=== PATIENT | female | born 1945 | race Caucasian/White ===

== ENCOUNTER 2016-04-16 15:18 | Inpatient (IN) ==
[2016-04-16] MEDS ORDERED: Ipratropium/Albuterol Neb 3 ML IH ONE (15:21)
[2016-04-16] MEDS ORDERED: methylPREDNISolone 125 MG/2 ML VIAL IVP ONE (15:50)
[2016-04-16] MEDS ORDERED: 0.9 % Sodium Chloride 1,000 ML IVC ONE (15:50)
--- NOTE | 2016-04-16 15:55 | Emergency Department Note ---
Disposition Clinical Impression: Community acquired pneumonia, Acute exacerbation of chronic obstructive pulmonary disease (COPD) Disposition: Admitted As Inpatient Condition: Critical General Adult HPI - General Chief complaint: ED Shortness of Breath/Dyspnea Stated complaint: SOB/ERNESTO Time Seen by Provider: 04/16/16 15:20 Source: EMS - History of Present Illness Pain Scale: 5 - Related Data Home Medications Medication Instructions Recorded Confirmed Albuterol Neb [Proventil Neb] 2.5 mg IH Q6H PRN 10/31/14 04/16/16 Aspirin 81 mg PO DAILY 10/31/14 04/16/16 Atorvastatin [Lipitor] 10 mg PO HS 10/31/14 04/16/16 Calcium Carbonate/Vitamin D3 1 tab PO DAILY 10/31/14 04/16/16 [Calcium 600 + Vit D Tablet] Levothyroxine [Synthroid] 88 mcg PO DAILY 10/31/14 04/16/16 Albuterol Sulfate [Proair Hfa] 2 puff IH Q4-6H PRN 04/16/16 04/16/16 Fluticasone/Salmeterol [Advair 1 puff IH BID 04/16/16 04/16/16 250-50 Diskus] Guaifenesin [Mucinex] 600 mg PO BID PRN 04/16/16 04/16/16 Raloxifene [Evista] 60 mg PO DAILY 04/16/16 04/16/16 Allergies Allergy/AdvReac Type Severity Reaction Status Date / Time Sulfa (Sulfonamide Allergy Rash Verified 10/31/14 16:15 Antibiotics) Past Medical History - Past Medical History Medical history: Reports: COPD, hyperlipidemia, thyroid disease Psychiatric history: Reports: no psych 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 Degroot. Patient presents by EMS from an urgent care where she presented with shortness of breath. Patient has a history of COPD but also has a history of anxiety as a cause of shortness of breath. She thinks that today both things are going on. On examination she seems in respiratory distress with tachypnea and accessory muscle use. She has decreased air movement in both lung padron but there is some wheezing with fair movement that is present. See no clinical indication of congestive heart failure. We started BiPAP with DuoNeb right away. Chest x-ray and ABG are pending as are the other shortness of breath labs. We will get her Solu-Medrol as well. Disposition will be based on diagnostic results and reevaluation. Time: 15:55 Reevaluation #2: Patient did better with breathing treatments. We will remove the BiPAP and she was breathing comfortably in the bed although her heart rate remained about 120. Chest x-ray showed what looks like it might be a hilar pneumonia. We got the patient up and ambulated her and after only a very short distance she decompensated severely we had to get a wheelchair to take her back to the bed and get her on oxygen and aerosol treatments again. She is to be admitted to the hospital. We will start her on antibiotics. Time: 17:26 Vital Signs Temperature 98.2 F 04/16/16 15:20 Pulse Rate 69 04/16/16 15:20 Respiratory Rate 28 04/16/16 15:20 Blood Pressure 140/87 04/16/16 15:20 O2 Sat by Pulse Oximetry 97 04/16/16 15:20 Temperature 97.7 F 04/18/16 11:41 Pulse Rate 96 04/18/16 11:41 Respiratory Rate 16 04/18/16 11:41 Blood Pressure 138/89 04/18/16 11:41 O2 Sat by Pulse Oximetry 96 04/18/16 11:41 Oxygen Delivery Oxygen Delivery Nasal Cannula Medical Decision Making - Lab Data Result diagrams: 04/18/16 04:25 04/18/16 04:25 Lab Results 04/16/16 04/16/16 04/16/16 Range/Units 15:46 16:09 16:09 WBC 10.0 (4.3-11.1) K/mcL RBC 4.66 (3.82-4.97) M/mcL Hgb 14.7 (11.5-15.4) g/dL Hct 44.6 (35.3-44.9) % MCV 95.7 (83.0-100.0) fL MCH 31.5 (28.0-33.3) pg MCHC 33.0 (31.6-35.5) g/dL RDW 13.4 (11.5-14.5) % Plt Count 224 (140-400) K/mcL MPV 10.1 (9.4-12.4) fL Immature Gran % 0.6 (0-4) % Seg Neutrophils % 83.5 % Lymphocytes % 9.5 % Monocytes % 4.8 % Eosinophils % 1.4 % Basophils % 0.2 % Neutrophils # 8.4 (1.6-8.9) K/mcL Lymphocytes # 1.0 (0.6-4.6) K/mcL Monocytes # 0.5 (0.0-1.3) K/mcL Eosinophils # 0.1 (0.0-0.6) K/mcL Basophils # 0.0 (0.0-0.2) K/mcL D-Dimer 308 (0-500) ng/mLFEU ABG pH 7.42 (7.32-7.45) pH Units ABG pCO2 41 (35-45) mmHg ABG pO2 115 H (85-104) mmHg ABG HCO3 26.6 (21-27) mEQ/L ABG Total CO2 27.9 H (20-26) mEq/L ABG O2 Saturation 99 H (95-98) % ABG Base Excess 1.9 (-2.0 to 3.0) mEq/L Blood Gas Modality BIPAP Inspired O2 28 % Sodium (136-145) mEq/L Potassium (3.5-4.5) mEq/L Chloride (98-109) mEq/L Carbon Dioxide (19-29) mEq/L BUN (7-20) mg/dL Creatinine (0.57-1.11) mg/dL Est GFR ( Amer) (> 60) Est GFR (Non-Af Amer) (> 60) BUN/Creatinine Ratio (6-26) Glucose (70-99) mg/dL Est Mean Plasma Glucose mg/dl Hemoglobin A1c ( - 5.6) % Calculated Osmolality (280-300) Calcium (8.6-10.8) mg/dL Troponin I (0-0.03) ng/mL B-Natriuretic Peptide (0-100) pg/mL TSH (0.350-4.840) mcIU/mL 04/16/16 04/16/16 04/16/16 Range/Units 16:09 16:09 16:09 WBC (4.3-11.1) K/mcL RBC (3.82-4.97) M/mcL Hgb (11.5-15.4) g/dL Hct (35.3-44.9) % MCV (83.0-100.0) fL MCH (28.0-33.3) pg MCHC (31.6-35.5) g/dL RDW (11.5-14.5) % Plt Count (140-400) K/mcL MPV (9.4-12.4) fL Immature Gran % (0-4) % Seg Neutrophils % % Lymphocytes % % Monocytes % % Eosinophils % % Basophils % % Neutrophils # (1.6-8.9) K/mcL Lymphocytes # (0.6-4.6) K/mcL Monocytes # (0.0-1.3) K/mcL Eosinophils # (0.0-0.6) K/mcL Basophils # (0.0-0.2) K/mcL D-Dimer (0-500) ng/mLFEU ABG pH (7.32-7.45) pH Units ABG pCO2 (35-45) mmHg ABG pO2 (85-104) mmHg ABG HCO3 (21-27) mEQ/L ABG Total CO2 (20-26) mEq/L ABG O2 Saturation (95-98) % ABG Base Excess (-2.0 to 3.0) mEq/L Blood Gas Modality Inspired O2 % Sodium 139 (136-145) mEq/L Potassium 4.2 (3.5-4.5) mEq/L Chloride 105 (98-109) mEq/L Carbon Dioxide 26 (19-29) mEq/L BUN 12 (7-20) mg/dL Creatinine 0.78 (0.57-1.11) mg/dL Est GFR ( Amer) > 60 (> 60) Est GFR (Non-Af Amer) > 60 (> 60) BUN/Creatinine Ratio 15 (6-26) Glucose 104 H (70-99) mg/dL Est Mean Plasma Glucose mg/dl Hemoglobin A1c ( - 5.6) % Calculated Osmolality 288 (280-300) Calcium 9.0 (8.6-10.8) mg/dL Troponin I 0.01 (0-0.03) ng/mL B-Natriuretic Peptide 20 (0-100) pg/mL TSH (0.350-4.840) mcIU/mL 04/17/16 04/17/16 04/17/16 Range/Units 04:42 04:42 04:42 WBC 4.7 D (4.3-11.1) K/mcL RBC 4.21 (3.82-4.97) M/mcL Hgb 13.1 D (11.5-15.4) g/dL Hct 40.5 (35.3-44.9) % MCV 96.2 (83.0-100.0) fL MCH 31.1 (28.0-33.3) pg MCHC 32.3 (31.6-35.5) g/dL RDW 13.3 (11.5-14.5) % Plt Count 196 (140-400) K/mcL MPV 10.0 (9.4-12.4) fL Immature Gran % 0.4 (0-4) % Seg Neutrophils % 88.8 % Lymphocytes % 8.5 % Monocytes % 2.1 % Eosinophils % 0.0 % Basophils % 0.2 % Neutrophils # 4.2 (1.6-8.9) K/mcL Lymphocytes # 0.4 L (0.6-4.6) K/mcL Monocytes # 0.1 (0.0-1.3) K/mcL Eosinophils # 0.0 (0.0-0.6) K/mcL Basophils # 0.0 (0.0-0.2) K/mcL D-Dimer (0-500) ng/mLFEU ABG pH (7.32-7.45) pH Units ABG pCO2 (35-45) mmHg ABG pO2 (85-104) mmHg ABG HCO3 (21-27) mEQ/L ABG Total CO2 (20-26) mEq/L ABG O2 Saturation (95-98) % ABG Base Excess (-2.0 to 3.0) mEq/L Blood Gas Modality Inspired O2 % Sodium 139 (136-145) mEq/L Potassium 4.4 (3.5-4.5) mEq/L Chloride 107 (98-109) mEq/L Carbon Dioxide 24 (19-29) mEq/L BUN 13 (7-20) mg/dL Creatinine 0.66 (0.57-1.11) mg/dL Est GFR ( Amer) > 60 (> 60) Est GFR (Non-Af Amer) > 60 (> 60) BUN/Creatinine Ratio 20 (6-26) Glucose 143 H (70-99) mg/dL Est Mean Plasma Glucose 114 mg/dl Hemoglobin A1c 5.6 ( - 5.6) % Calculated Osmolality 291 (280-300) Calcium 8.3 L (8.6-10.8) mg/dL Troponin I (0-0.03) ng/mL B-Natriuretic Peptide (0-100) pg/mL TSH 0.539 (0.350-4.840) mcIU/mL Attestation Statement - Attestation Attestation: I, Dr. Bhandari, examined this patient [id number] and my medical decision- making was reviewed with Dr. Austin, Resident Physician. I agree with the documented findings, disposition and treatment plan as described except to the extent set forth below. Please see my progress notes for details.
[2016-04-16 15:58] LABS: ABG Base Excess 1.9 mEq/L (-2.0 to 3.0); ABG HCO3 26.6 mEQ/L (21-27); ABG Oxygen Saturation 99 % (95-98); ABG PCO2 41 mmHg (35-45); ABG PH 7.42 pH Units (7.32-7.45); ABG PO2 115 mmHg (85-104); ABG TCO2 27.9 mEq/L (20-26)
[2016-04-16 16:00] LABS: Blood Gas FiO2 28 %
--- NOTE | 2016-04-16 16:03 | Emergency Department Note ---
Disposition Clinical Impression: Community acquired pneumonia, Acute exacerbation of chronic obstructive pulmonary disease (COPD) Disposition: Admitted As Inpatient Condition: Critical Referrals: Davide Kim MD [Primary Care Provider] - Forms: ED Satisfaction Letter SOB HPI - General Chief Complaint: ED Shortness of Breath/Dyspnea Stated Complaint: SOB/ERNESTO Time Seen by Provider: 04/16/16 15:20 Source: EMS Nursing Notes Reviewed: Yes Vital Signs Reviewed: Yes - History of Present Illness Mrs. Jara, a 71-year-old female, presents from urgent care via EMS with chief complaint shortness of breath. She arrives on nonrebreather and received 2 albuterol nebulizers in route with subjective improvement in her symptoms. Patient has known history of COPD; does not require home oxygen. Patient states her symptoms began last night with worsening shortness of breath unrelieved with her typical regimen of inhalers. At his most severe, she was unable to ambulate due to her dyspnea. Patient states she has associated chills , wet nonproductive cough. Tmax by mouth at home 99.8F. Patient also notes a history of anxiety; unmedicated. Patient is a former smoker. Quit 1 yr ago. Hx 1ppd x 30yrs. Patient is the caregiver for her who has dementia. - Related Data Home Medications Medication Instructions Recorded Confirmed Albuterol Neb [Proventil Neb] 2.5 mg IH Q6H PRN 10/31/14 04/16/16 Aspirin 81 mg PO DAILY 10/31/14 04/16/16 Atorvastatin [Lipitor] 10 mg PO HS 10/31/14 04/16/16 Calcium Carbonate/Vitamin D3 1 tab PO DAILY 10/31/14 04/16/16 [Calcium 600 + Vit D Tablet] Levothyroxine [Synthroid] 88 mcg PO DAILY 10/31/14 04/16/16 Albuterol Sulfate [Proair Hfa] 2 puff IH Q4-6H PRN 04/16/16 04/16/16 Fluticasone/Salmeterol [Advair 1 puff IH BID 04/16/16 04/16/16 250-50 Diskus] Guaifenesin [Mucinex] 600 mg PO BID PRN 04/16/16 04/16/16 Raloxifene [Evista] 60 mg PO DAILY 04/16/16 04/16/16 Allergies Allergy/AdvReac Type Severity Reaction Status Date / Time Sulfa (Sulfonamide Allergy Rash Verified 10/31/14 16:15 Antibiotics) All systems ED: reviewed and negative except as stated. Constitutional: Reports: fever, chills, weakness ENT ED: Denies: congestion Cardiovascular: Reports: dyspnea on exertion. Denies: chest pain, palpitations , orthopnea, edema Respiratory: Reports: cough, wheezes. Denies: dyspnea, hemoptysis, sputum production Gastrointestinal: Reports: nausea. 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 General: Patient is alert, oriented, and tachypneic but without tripoding, cyanosis, retractions. HEENT: No facial asymmetry. Head is normocephalic and atraumatic. Trachea midline. Cardiovascular: Heart regular rate and rhythm without clicks, rubs, gallops, or murmurs. No JVD. Respiratory: Symmetric chest rise with good respiratory effort. On BiPap; mechanical breath sounds without crackles or rhonchi. Scattered wheezing. Abdomen: Bowel sounds present normoactive x-4 quadrants. Abdomen is soft, nondistended, and nontender. No organomegaly noted. Psych: Patient initially anxious however began to calm with duonebs and BiPap. Patient's affect is appropriate for situation. - General General appearance: alert Course Course Narrative: Placed patient on BiPap with DuoNebs - she tolerated the mask well and her work of breathing reduced. Once she stabilized, we removed the BiPap. Her pulse ox at rest was 88-89% on RA. Ambulated patient for ambulatory pulse ox; she failed as she was unable to ambulate without necessitating a wheelchair due to severe dyspnea. Chest x-ray is suspicious for early pneumonia. Patient has no recent hospitalizations. Will empirically treat for community acquired pneumonia and admit. Vital Signs Temperature 98.2 F 04/16/16 15:20 Pulse Rate 69 04/16/16 15:20 Respiratory Rate 28 04/16/16 15:20 Blood Pressure 140/87 04/16/16 15:20 O2 Sat by Pulse Oximetry 97 04/16/16 15:20 Temperature 98.2 F 04/16/16 15:20 Pulse Rate 120 04/16/16 16:45 Respiratory Rate 18 04/16/16 16:45 Blood Pressure 126/75 04/16/16 16:45 O2 Sat by Pulse Oximetry 92 L 04/16/16 16:45 Oxygen Delivery Oxygen Delivery Bipap Shortness of Breath/Dyspnea - Lab Data Lab results reviewed: Yes I reviewed the patient's lab results. Result diagrams: 04/16/16 16:09 04/16/16 16:09 Lab Results 04/16/16 04/16/16 04/16/16 Range/Units 15:46 16:09 16:09 WBC 10.0 (4.3-11.1) K/mcL RBC 4.66 (3.82-4.97) M/mcL Hgb 14.7 (11.5-15.4) g/dL Hct 44.6 (35.3-44.9) % MCV 95.7 (83.0-100.0) fL MCH 31.5 (28.0-33.3) pg MCHC 33.0 (31.6-35.5) g/dL RDW 13.4 (11.5-14.5) % Plt Count 224 (140-400) K/mcL MPV 10.1 (9.4-12.4) fL Immature Gran % 0.6 (0-4) % Seg Neutrophils % 83.5 % Lymphocytes % 9.5 % Monocytes % 4.8 % Eosinophils % 1.4 % Basophils % 0.2 % Neutrophils # 8.4 (1.6-8.9) K/mcL Lymphocytes # 1.0 (0.6-4.6) K/mcL Monocytes # 0.5 (0.0-1.3) K/mcL Eosinophils # 0.1 (0.0-0.6) K/mcL Basophils # 0.0 (0.0-0.2) K/mcL D-Dimer 308 (0-500) ng/mLFEU ABG pH 7.42 (7.32-7.45) pH Units ABG pCO2 41 (35-45) mmHg ABG pO2 115 H (85-104) mmHg ABG HCO3 26.6 (21-27) mEQ/L ABG Total CO2 27.9 H (20-26) mEq/L ABG O2 Saturation 99 H (95-98) % ABG Base Excess 1.9 (-2.0 to 3.0) mEq/L Blood Gas Modality BIPAP Inspired O2 28 % Sodium (136-145) mEq/L Potassium (3.5-4.5) mEq/L Chloride (98-109) mEq/L Carbon Dioxide (19-29) mEq/L BUN (7-20) mg/dL Creatinine (0.57-1.11) mg/dL Est GFR ( Amer) (> 60) Est GFR (Non-Af Amer) (> 60) BUN/Creatinine Ratio (6-26) Glucose (70-99) mg/dL Calculated Osmolality (280-300) Calcium (8.6-10.8) mg/dL Troponin I (0-0.03) ng/mL B-Natriuretic Peptide (0-100) pg/mL 04/16/16 04/16/16 04/16/16 Range/Units 16:09 16:09 16:09 WBC (4.3-11.1) K/mcL RBC (3.82-4.97) M/mcL Hgb (11.5-15.4) g/dL Hct (35.3-44.9) % MCV (83.0-100.0) fL MCH (28.0-33.3) pg MCHC (31.6-35.5) g/dL RDW (11.5-14.5) % Plt Count (140-400) K/mcL MPV (9.4-12.4) fL Immature Gran % (0-4) % Seg Neutrophils % % Lymphocytes % % Monocytes % % Eosinophils % % Basophils % % Neutrophils # (1.6-8.9) K/mcL Lymphocytes # (0.6-4.6) K/mcL Monocytes # (0.0-1.3) K/mcL Eosinophils # (0.0-0.6) K/mcL Basophils # (0.0-0.2) K/mcL D-Dimer (0-500) ng/mLFEU ABG pH (7.32-7.45) pH Units ABG pCO2 (35-45) mmHg ABG pO2 (85-104) mmHg ABG HCO3 (21-27) mEQ/L ABG Total CO2 (20-26) mEq/L ABG O2 Saturation (95-98) % ABG Base Excess (-2.0 to 3.0) mEq/L Blood Gas Modality Inspired O2 % Sodium 139 (136-145) mEq/L Potassium 4.2 (3.5-4.5) mEq/L Chloride 105 (98-109) mEq/L Carbon Dioxide 26 (19-29) mEq/L BUN 12 (7-20) mg/dL Creatinine 0.78 (0.57-1.11) mg/dL Est GFR ( Amer) > 60 (> 60) Est GFR (Non-Af Amer) > 60 (> 60) BUN/Creatinine Ratio 15 (6-26) Glucose 104 H (70-99) mg/dL Calculated Osmolality 288 (280-300) Calcium 9.0 (8.6-10.8) mg/dL Troponin I 0.01 (0-0.03) ng/mL B-Natriuretic Peptide 20 (0-100) pg/mL - Radiology Data Radiology results reviewed: Yes I reviewed the patient's radiology results. - EKG Data EKG attestation: Yes I reviewed and interpreted this EKG. EKG results narrative: EKG dated 04/16/16 at 15:26 shows sinus tachycardia with a rate of 108. Prophylaxis. Intervals. Nonspecific ST-T changes. No previous EKG for comparison.
[2016-04-16 16:34] LABS: Basophils % 0.2 %; Eosinophils # 0.1 K/mcL (0.0-0.6); Eosinophils % 1.4 %; Hematocrit 44.6 % (35.3-44.9); Hemoglobin 14.7 g/dL (11.5-15.4); Immature Granulocytes % 0.6 % (0-4); Lymphocytes % 9.5 %; Mean Corpuscular Hemoglobin 31.5 pg (28.0-33.3); Mean Corpuscular Volume 95.7 fL (83.0-100.0); Mean Platelet Volume 10.1 fL (9.4-12.4); Monocytes # 0.5 K/mcL (0.0-1.3); Monocytes % 4.8 %; Neutrophils # 8.4 K/mcL (1.6-8.9); Platelet Count 224 K/mcL (140-400); Red Blood Count 4.66 M/mcL (3.82-4.97); Red Cell Distribution Width 13.4 % (11.5-14.5); Segmented Neutrophils % 83.5 %
[2016-04-16 16:45] LABS: BUN/Creatinine Ratio 15 (6-26); Blood Urea Nitrogen 12 mg/dL (7-20); Carbon Dioxide 26 mEq/L (19-29); Chloride 105 mEq/L (98-109); Glucose 104 mg/dL (70-99); Osmolality,Calculated 288 (280-300); Potassium 4.2 mEq/L (3.5-4.5); Sodium 139 mEq/L (136-145); eGFR For African Americans > 60 (> 60); eGFR For Non-African Americans > 60 (> 60)
[2016-04-16] MEDS ORDERED: Azithromycin 500 MG in D5% in Water 250 ML IVPB ONE (17:21)
[2016-04-16] MEDS ORDERED: Ipratropium/Albuterol Neb 3 ML ONE (17:23)
[2016-04-16] MEDS ORDERED: 0.9 % Sodium Chloride 500 ML IVC ONE (17:24)
[2016-04-16] MEDS ORDERED: Naloxone 0.4 MG/ML INJ IVP PRN (18:17)
[2016-04-16] MEDS ORDERED: *HR* HYDROcodone/Acet 5/325 mg TABLET PO PRN (18:17)
[2016-04-16] MEDS ORDERED: Ondansetron 4 MG/2 ML VIAL IVP PRN (18:17)
[2016-04-16] MEDS ORDERED: *HR* Morphine 2 MG/ML SYRINGE IVP PRN (18:17)
[2016-04-16] MEDS ORDERED: Acetaminophen 325 MG TABLET PO PRN (18:17)
--- NOTE | 2016-04-16 19:45 | Internal Med History&Physical ---
Date of Encounter: 04/16/16 Time of Encounter: 18:30 Assessment and Plan (1) Acute respiratory failure with hypoxia Current visit: Yes Status: Acute Former smoker with emphysema, hypoxic in the ER currently at time of review on 3 L of oxygen saturating 93% Possibly secondary to community-acquired pneumonia. Continue supplemental oxygen. Blood gas noted, was done on [id number] hypercapnia. Patient may require 6 minutes walk test to determine home oxygen eligibility prior to discharge. Patient at risk for further worsening of respiratory status post necessitating mechanical ventilation She is full code. (2) Acute exacerbation of chronic obstructive pulmonary disease (COPD) Current visit: Yes Status: Acute COPD exacerbation secondary to community-acquired pneumonia D-dimer is negative no suspicion for pulmonary embolism BNP within normal limits, no suspicion for CHF Chest x-ray showed pneumonia Continue duonebs q4h continue albuterol q2hr prn IV Fluid Hydration for Tachycardia, Prednisone by Mouth from Tomorrow Morning, Continue IV Rocephin 1 G Daily, Continue IV Azithromycin 500 Mg Daily, Continue Supplemental Oxygen Check Urine Legionella Ag, Check Urine Streptococcal Antigen. Patient Is Afebrile, There Is No Leukocytosis, She Currently Does Not Meet Criteria for Sepsis. (3) Community acquired pneumonia Current visit: Yes Status: Acute Right lower lobe pneumonia Management as above. (4) Hyperlipidemia Current visit: Yes Status: Chronic Resume home medications. Qualifiers: Hyperlipidemia type: unspecified Qualified Code(s): E78.5 - Hyperlipidemia , unspecified (5) Hypothyroidism Current visit: Yes Status: Acute Resume home medications. Qualifiers: Hypothyroidism type: unspecified Qualified Code(s): E03.9 - Hypothyroidism , unspecified (6) Osteoporosis Current visit: Yes Status: Chronic Resume home meds Internal Medicine - H&P: HPI Chief complaint: Shortness of breath Admitted From: Home Plans for Post Hospital Care: Home History of present illness: Ms. Jara is a 71 year old female with past medical history of hyperlipidemia, former smoker with emphysema on home oxygen, hypothyroidism, osteoporosis Presents with one-week history of cough productive of sputum however patient is unable to expectorate and described a follow-up sputum. Since last night has been having difficulty in breathing worse on exertion Associated Easy fatigability. She denies chest pain, denies palpitations, dizziness She denies orthopnea, denies paroxysmal motion dyspnea, denies pedal edema. She also reports sore throat started to eat this morning, she denies flu-like symptoms including rhinorrhea she denies sick contacts or recent travels She received treatment for COPD exacerbation on in the ER, and found plan for discharge she desaturated in the 70s however she responded to oxygen. She will be placed on observation with acute hypoxemic respiratory failure secondary to community-acquired pneumonia and COPD exacerbation. Plan of care discussed with patient on proton at the bedside, they verbalize understanding. She is full code. Past Med Surg Social Fam HX - Past Medical History Medical history: COPD, hyperlipidemia, thyroid disease Psychiatric history: no psych history - Social History Smoking Status: Former smoker Smokeless Tobacco Status: No Alcohol use: rarely Drug use: none Internal Medicine - H&P: Meds Albuterol Neb [Proventil Neb] 2.5 mg IH Q6H PRN 10/31/14 [History] Aspirin 81 mg PO DAILY 10/31/14 [History] Atorvastatin [Lipitor] 10 mg PO HS 10/31/14 [History] Calcium Carbonate/Vitamin D3 [Calcium 600 + Vit D Tablet] 1 tab PO DAILY [History] Levothyroxine [Synthroid] 88 mcg PO DAILY 10/31/14 [History] Albuterol Sulfate [Proair Hfa] 2 puff IH Q4-6H PRN 04/16/16 [History] Fluticasone/Salmeterol [Advair 250-50 Diskus] 1 puff IH BID 04/16/16 [History] Guaifenesin [Mucinex] 600 mg PO BID PRN 04/16/16 [History] Raloxifene [Evista] 60 mg PO DAILY 04/16/16 [History] Allergies Sulfa (Sulfonamide Antibiotics) Allergy (Verified 10/31/14 16:15) Rash All Systems PM: A 10-system review of systems was performed and is negative for pertinent findings except as documented above in the HPI. - Constitutional Constitutional: no chills, no fever(s), no night sweats - EENT Eyes: no change in vision, no discharge, no pain, no photophobia Ears: no ear discharge, no ear pain, no tinnitus Nose, mouth and throat: no dysphagia, no nasal discharge, no neck pain, no sore throat - Cardiovascular Cardiovascular ROS IM: as per HPI - Respiratory Respiratory: as per HPI - Gastrointestinal Gastrointestinal: no abdominal pain, no diarrhea, no hematemesis, no hematochezia, no melena, no nausea, no vomiting - Genitourinary Genitourinary: no change in urinary stream, no dysuria, no flank pain, no hematuria - Musculoskeletal Musculoskeletal ROS IM: no numbness, no tingling - Integumentary Integumentary IM: no rash, no unusual bruising - Neurological Neurological ROS: no confusion, no convulsions, no focal weakness, no numbness, no tingling, no tremor(s) - Hematologic/Lymphatic Hematologic/Lymphatic: no easy bruising - Constitutional Vitals: Temp Pulse Resp BP Pulse Ox 0 F L 120 22 125/68 92 L 04/16/16 18:00 04/16/16 16:45 04/16/16 18:00 04/16/16 18:00 04/16/16 16:45 General appearance: Present: cachectic, A&O X 3, pleasant, no acute distress - Head Head exam: Present: atraumatic, normocephalic - Eye Eye exam: Present: PERRL, conjuntiva pink, sclera anicteric Pupils: Present: PERRL - ENT Additional comments: Pharyngeal erythema, no exudates - Neck Neck exam general surgery: Present: supple, trachea midline. Absent: lymphadenopathy - Respiratory Respiratory exam: Present: prolonged expiratory phase, wheezes. Absent: accessory muscle use, rales, rhonchi, stridor, tachypnea - Cardiovascular Cardiovascular exam: Present: distant heart sounds, RRR, +S1, +S2. Absent: +S3 , systolic murmur - GI/Abdominal GI/Abdominal exam: Present: normal bowel sounds, soft, no peritoneal signs. Absent: mass, tenderness - Extremities Exam Extremities exam: Absent: pedal edema - Neurological Exam Neurological exam: Present: alert, normal gait, oriented X3, no focal deficits. Absent: pronater drift, facial droop, speech deficit - Skin Skin exam: Present: dry Internal Med - H&P Results - Labs CBC & Chem 7: 04/16/16 16:09 04/16/16 16:09 - EKG Data -: EKG Interpreted by Myself EKG shows normal: sinus rhythm (Sinus tachycardia), ST-T waves (TWI in V2, not new) Rate: tachycardia - EKG Data Prior EKG available for review: yes When compared to previous EKG: there is no significant change Interpretation IM: other (Sinus tach, SHRUTHI, RBBB)
[2016-04-17] MEDS: 0.9 % Sodium Chloride 1,000 ML IVC SCH ×2 (00:19→13:03)
[2016-04-17 05:20] LABS: Hemoglobin A1C 5.6 %
[2016-04-17 05:24] LABS: Basophils % 0.2 %; Hematocrit 40.5 % (35.3-44.9); Immature Granulocytes % 0.4 % (0-4); Lymphocytes # 0.4 K/mcL (0.6-4.6); Lymphocytes % 8.5 %; Mean Corpuscular HGB Conc 32.3 g/dL (31.6-35.5); Mean Corpuscular Hemoglobin 31.1 pg (28.0-33.3); Mean Corpuscular Volume 96.2 fL (83.0-100.0); Monocytes # 0.1 K/mcL (0.0-1.3); Monocytes % 2.1 %; Neutrophils # 4.2 K/mcL (1.6-8.9); Platelet Count 196 K/mcL (140-400); Red Blood Count 4.21 M/mcL (3.82-4.97); Red Cell Distribution Width 13.3 % (11.5-14.5); Segmented Neutrophils % 88.8 %
[2016-04-17 05:29] LABS: Hemoglobin 13.1 g/dL (11.5-15.4)
[2016-04-17 05:32] LABS: BUN/Creatinine Ratio 20 (6-26); Blood Urea Nitrogen 13 mg/dL (7-20); Calcium 8.3 mg/dL (8.6-10.8); Carbon Dioxide 24 mEq/L (19-29); Chloride 107 mEq/L (98-109); Glucose 143 mg/dL (70-99); Osmolality,Calculated 291 (280-300); Potassium 4.4 mEq/L (3.5-4.5); Sodium 139 mEq/L (136-145); eGFR For African Americans > 60 (> 60); eGFR For Non-African Americans > 60 (> 60)
[2016-04-17 05:55] LABS: Thyroid Stimulating Hormone 0.539 mcIU/mL (0.350-4.840)
[2016-04-17] MEDS: Albuterol 2.5 MG/3 ML NEBULIZER IH PRN ×2 (06:59→23:38)
[2016-04-17] MEDS: Aspirin 81 MG TAB.CHEW PO SCH (08:23)
[2016-04-17] MEDS: CALCIUM CARBONATE PO SCH (08:23)
[2016-04-17] MEDS: VITAMIN D3 PO SCH (08:23)
[2016-04-17] MEDS ORDERED: predniSONE 20 MG TABLET PO SCH (09:00)
--- NOTE | 2016-04-17 11:10 | Electrocardiograph Report ---
[facility] Test Date: 2016-04-16 Pat Name: Nano Jara Department: 104 Room: 2NE26 Gender: F Automotive Refinish Technician: : [id number] Requested By: Davide Bhandari Order Number: [id number] Reading MD: Primo Miller MD Measurements Intervals [place] Rate: 108 P: 87 MN: 149 QRS: 96 QRSD: 90 T: 79 QT: 303 QTc: 366 Interpretive Statements SINUS TACHYCARDIA WITH OCCASIONAL VENTRICULAR PREMATURE COMPLEXES RIGHT ATRIAL ENLARGEMENT LEFT ATRIAL ENLARGEMENT BORDERLINE RIGHT AXIS DEVIATION POOR R WAVE PROGRESSION BASELINE ARTIFACT Electronically Signed On 04-17-16 11:09:13 EST by Primo Miller MD
--- NOTE | 2016-04-17 15:59 | Internal Med Progress Note ---
<Henry Ho - Last Filed: 04/17/16 15:56> Date of Encounter: 04/17/16 Time of Encounter: 09:00 - Assessment and plan (1) Acute exacerbation of chronic obstructive pulmonary disease (COPD) Current Visit: Yes Status: Acute Assessment and plan: Patient was admitted with acute respiratory failure in setting of severe emphysema and can be acquired pneumonia. She was tachypnic, and hypoxic with chest x-ray demonstrating right lower lobe consolidation. Patient states that she does not use oxygen at home, she is a former smoker but does not smoke currently. She does live with her spouse who is a daily smoker and has dementia. Plan: - Chest x-ray demonstrates emphysematous changes, patient is hypoxic, demonstrating secondary muscle use and requiring increased oxygen demand. - Continue Solu-Medrol 40 mg IV every 8 hours with plans to decrease dose tomorrow. - Continue inpatient scheduled respiratory therapy. - Pulmonary consults placed and spoke with able bodied seaman who recommended ordering PFTs currently. - O2 evaluation for potential home oxygen. - Continue azithromycin every 24 hours, continue ceftriaxone every 24 hours (2) Acute respiratory failure with hypoxia Current Visit: Yes Status: Acute Assessment and plan: Patient presents with acute hypoxic respiratory failure in the setting of COPD exacerbation. Patient is likely hypoxic at home as she has not followed up with pulmonology and does not wear oxygen at home. She presents with severe emphysema body habitus, secondary muscle use, and imaging studies have been reviewed demonstrating severe stomach changes. Plan: - As stated above. (3) Community acquired pneumonia Current Visit: Yes Status: Acute Assessment and plan: Patient recently treated for community-acquired pneumonia, chest x-ray demonstrates right lower lobe consolidation likely residual finding from recent acquired pneumonia. As the patient presents with acute hypoxic respiratory failure will treat community-acquired pneumonia and COPD exacerbation. Plan: - Continue current antibiotic coverage including azithromycin and ceftriaxone. (4) Hypothyroidism Current Visit: Yes Status: Acute Assessment and plan: Patient is a history of hypothyroidism, TSH is 0.539. plan to continue patient's current dose of levothyroxine 88 mcg by mouth daily. Qualifiers: Hypothyroidism type: unspecified Qualified Code(s): E03.9 - Hypothyroidism , unspecified (5) DVT prophylaxis Current Visit: Yes Status: Acute Assessment and plan: DVT prophylaxis includes Lovenox 40 mg subcutaneously daily. - Subjective Interval history: Mrs. Jara 71-year-old female has been seen and evaluated patient bedside. She is sitting up in bed with nasal cannula oxygen and at 3 L in mild respiratory discomfort. Patient says she is still short of breath but improved significantly since her admission. She says she has recently been treated for pneumonia in the outpatient setting but does not feel that she has improved. She feels that her respiratory symptoms had gradually been getting worse which led to her coming in at the recommendations of her family members. She denies any revision, fevers, chills, night sweats, chest pain or palpitations or chest pressure. She denies any nausea, vomiting diarrhea or constipation, or swelling in her lower extremities. She denies any formal diagnosis of COPD or emphysema and has not followed up with a able bodied seaman in the past. She says she has a history of smoking but currently is a nonsmoker but lives with her spouse who smokes in the home. I discussed her current diagnosis and plan, she agrees with the current plan. - Constitutional Vitals: Temp Pulse Resp BP Pulse Ox 98 F 94 16 137/85 100 04/17/16 15:08 04/17/16 15:08 04/17/16 15:08 04/17/16 15:08 04/17/16 15:08 General appearance: Present: cachectic, A&O X 3, pleasant, no acute distress - Head Head exam: Present: atraumatic, normocephalic - Eye Eye exam: Present: conjuntiva pink, sclera anicteric - ENT ENT exam: Present: mucous membranes moist - Neck Neck exam general surgery: Present: supple, trachea midline Additional comments: Secondary muscle use with respiratory effort. - Respiratory Respiratory exam: Present: wheezes Additional comments: Patient has diffusely diminished breath sounds with decreased bronchial vesicular breath sounds in all lung padron. She has a diffuse inspiratory expiratory wheeze. Patient demonstrates tachypnea with secondary muscle use. Body habitus correlates with underlying emphysematous lungs. - Cardiovascular Cardiovascular exam: Present: RRR - GI/Abdominal GI/Abdominal exam: Present: normal bowel sounds, soft. Absent: tenderness - Extremities Exam Extremities exam: Present: warm Additional comments: All 4 extremities are symmetric bilateral without any noticeable signs of deformity, erythema or edema. Patient is moving all 4 limbs appropriately. - Neurological Exam Neurological exam: Present: alert, oriented X3, no focal deficits, strengths equal and symetr throughout. Absent: speech deficit - Psychiatric Psychiatric exam: Present: normal affect, normal mood - Skin Skin exam: Present: warm Internal Medicine: Result - Labs CBC & Chem 7: 04/17/16 04:42 04/17/16 04:42 Labs: Short CBC 04/17/16 Range/Units 04:42 WBC 4.7 D (4.3-11.1) K/mcL Hgb 13.1 D (11.5-15.4) g/dL Hct 40.5 (35.3-44.9) % Plt Count 196 (140-400) K/mcL Neutrophils # 4.2 (1.6-8.9) K/mcL BMP 04/17/16 04:42 Sodium 139 Potassium 4.4 Chloride 107 Carbon Dioxide 24 BUN 13 Creatinine 0.66 Glucose 143 H Calcium 8.3 L - ABG Interpretation ABG results: ABG ABG pH 7.42 pH Units (7.32-7.45) 04/16/16 15:46 ABG pCO2 41 mmHg (35-45) 04/16/16 15:46 ABG pO2 115 mmHg (85-104) H 04/16/16 15:46 ABG O2 Saturation 99 % (95-98) H 04/16/16 15:46 PT/INR, D-dimer D-Dimer 308 ng/mLFEU (0-500) 04/16/16 16:09 Consult Discharge Plan - Plan Referrals: Julia Palacio, PEARL PELLER [Advanced Practice Nurse] - 04/26/16 3:00 pm (SCHEDULED APPT FOR 04/18/16 HAS BEEN CANCELLED AND CHANGED TO 04/26/16 AT 3PM FOR HOSPITAL FOLLOW UP) <Bart Martin - Last Filed: 04/18/16 19:44> Date of Encounter: 04/17/16 - Constitutional Vitals: Temp Pulse Resp BP Pulse Ox 97.9 F 96 22 179/93 96 04/18/16 16:00 04/18/16 16:00 04/18/16 16:49 04/18/16 16:00 04/18/16 16:49 Internal Medicine: Result - Labs CBC & Chem 7: 04/18/16 04:25 04/18/16 04:25 Labs: Short CBC 04/18/16 Range/Units 04:25 WBC 13.3 H D (4.3-11.1) K/mcL Hgb 13.1 (11.5-15.4) g/dL Hct 40.2 (35.3-44.9) % Plt Count 202 (140-400) K/mcL Neutrophils # 12.3 H (1.6-8.9) K/mcL BMP 04/18/16 04:25 Sodium 144 Potassium 4.1 Chloride 113 H Carbon Dioxide 25 BUN 20 Creatinine 0.67 Glucose 148 H Calcium 8.5 L - ABG Interpretation ABG results: ABG ABG pH 7.42 pH Units (7.32-7.45) 04/16/16 15:46 ABG pCO2 41 mmHg (35-45) 04/16/16 15:46 ABG pO2 115 mmHg (85-104) H 04/16/16 15:46 ABG O2 Saturation 99 % (95-98) H 04/16/16 15:46 PT/INR, D-dimer D-Dimer 308 ng/mLFEU (0-500) 04/16/16 16:09 - Attending Attestation I examined this patient and my medical decision-making was reviewed with the Resident Physician on04/17/16. I agree with the documented findings, disposition and treatment plan as described except to the extent set forth below. Ms. Jara is currently admitted for acute hypoxic resp failure. She is moderate to high risk due to potential of worsening pulmonary symptoms and respiratory failure. Ms. Jara is having a lot of dyspnea at this time. No CP. Cough is nonproductive. No fever. No GI symptoms. Exam Alert. Mod resp distress. Accessory muscle use. Heart tachy and regular Lungs with wheeze. I/P 1. Acute hypoxic resp failure 2. Acute exac COPD Further diagnoses and plan as above.
[2016-04-17] MEDS ORDERED: MethylPREDNISolone 40 MG/ML VIAL IVP SCH (16:00)
[2016-04-17] MEDS: Azithromycin 500 MG in D5% in Water 250 ML IVPB SCH (17:21)
[2016-04-17] MEDS: MethylPREDNISolone 40 MG/ML VIAL IVP SCH ×2 (17:21→23:20)
[2016-04-17] MEDS: Budesonide/Formoterol 160/4.5 MDI IH SCH (20:27)
[2016-04-18] MEDS: MethylPREDNISolone 40 MG/ML VIAL IVP SCH (04:38)
[2016-04-18] MEDS: 0.9 % Sodium Chloride 1,000 ML IVC SCH (04:40)
[2016-04-18 05:02] LABS: Basophils % 0.1 %; Hematocrit 40.2 % (35.3-44.9); Hemoglobin 13.1 g/dL (11.5-15.4); Immature Granulocytes % 0.5 % (0-4); Lymphocytes # 0.7 K/mcL (0.6-4.6); Mean Corpuscular HGB Conc 32.6 g/dL (31.6-35.5); Mean Corpuscular Hemoglobin 32.1 pg (28.0-33.3); Mean Corpuscular Volume 98.5 fL (83.0-100.0); Mean Platelet Volume 10.5 fL (9.4-12.4); Monocytes # 0.3 K/mcL (0.0-1.3); Monocytes % 2.2 %; Neutrophils # 12.3 K/mcL (1.6-8.9); Platelet Count 202 K/mcL (140-400); Red Blood Count 4.08 M/mcL (3.82-4.97); Red Cell Distribution Width 13.3 % (11.5-14.5); Segmented Neutrophils % 92.2 %
[2016-04-18 05:17] LABS: BUN/Creatinine Ratio 30 (6-26); Blood Urea Nitrogen 20 mg/dL (7-20); Calcium 8.5 mg/dL (8.6-10.8); Carbon Dioxide 25 mEq/L (19-29); Chloride 113 mEq/L (98-109); Glucose 148 mg/dL (70-99); Osmolality,Calculated 303 (280-300); Potassium 4.1 mEq/L (3.5-4.5); Sodium 144 mEq/L (136-145); eGFR For African Americans > 60 (> 60); eGFR For Non-African Americans > 60 (> 60)
[2016-04-18] MEDS: *HR* Enoxaparin 40 MG/0.4 ML SYRINGE SQ SCH (06:21)
--- NOTE | 2016-04-18 08:08 | Pulmonology Consult Note ---
Date of Encounter: 04/18/16 Time of Encounter: 08:02 Assessment and Plan (1) Acute exacerbation of chronic obstructive pulmonary disease (COPD) Current Visit: Yes Status: Acute It is difficult to tell if this is a true exacerbation of her COPD, versus the natural progression of end-stage disease. I agree with the management up to this point. * I will transition her to by mouth prednisone, and I recommend a two-week taper. * Recommend a 5 day course of azithromycin * This should be her home-going regimen: Advair as currently prescribed, Spiriva 18 g inhaled once daily, nebulized albuterol on an as-needed basis * I will arrange outpatient follow-up with the pulmonary clinic, and she should be evaluated for pulmonary rehabilitation * If she qualifies for home oxygen therapy, she should be discharged on oxygen (2) Hypoxia Current Visit: Yes Status: Acute Likely due to COPD. She would benefit from home oxygen therapy if she qualifies. Please obtain room air oxygen saturations at rest and with ambulation prior to discharge. (3) Community acquired pneumonia Current Visit: Yes Status: Acute I see no convincing clinical or radiographic evidence of pneumonia. Recommend azithromycin for a 5 day course. No further recommendations from a pulmonary standpoint. Will sign off. Please call with questions. Terrance History of Present Illness Consult date: 04/17/16 Requesting physician: Emmanuel Hunter Reason for consult: COPD Chief complaint: Dyspnea History of present illness: 71-year-old white female with a medical history significant for COPD who was admitted for treatment of progressive dyspnea. The patient has not been well for several months. She noted progressive dyspnea on exertion in February 2016, and her primary care physician had added ipratropium to her home nebulizer regimen. She had also been on a course of antibiotics and prednisone, which only had a transient effect. When she is feeling her best she can walk up a flight of stairs, although this makes her quite dyspneic. In the weeks prior to admission, she reports only being able to walk across the room before she would have to rest due to severe shortness of breath. She also was noting increased work of breathing even at rest. Patient states that she typically has sinusitis and upper respiratory tract infections that cause an exacerbation or COPD. However, on this occasion she did not note any productive cough or sinus drainage. She did note some chills from time to time but no overt fevers. She does admit to progressive weight loss. She states she has not smoked since May 2015. She has multiple stressors in her life contributing to her difficulties with medication adherence , which includes her who has dementia and who she takes care of. She has been prescribed Advair, but has difficulties with taking this on a daily basis. Past Med Surg Social Fam HX - Past Medical History Medical history: COPD, hyperlipidemia, thyroid disease Psychiatric history: no psych history - Past Surgical History Surgical History: hysterectomy - Social History Smoking Status: Former smoker Smokeless Tobacco Status: No Alcohol use: rarely Drug use: none - Family History Mother Living Status: Hx Family Cardiac Disorders: Yes Hx Family Respiratory Disorders: No Hx Family Cancer: No Hx Family GI Disorders: No Hx Family Genitourinary Disorders: No Hx Family Endocrine Disorder: No Hx Family Musculoskeletal Disorders: No Hx Family Neuromuscular Disorders: No Hx Family Neurologic Disorders: No Hx Family HEENT Disorders: No Hx Family Autoimmune Disorders: No Hx Family Reproductive Disorders: No Hx Family Psychosocial Disorders: No Hx Family Medical Disorders: No Father Living Status: Hx Family Cardiac Disorders: Yes Hx Family Respiratory Disorders: No Hx Family Cancer: No Hx Family GI Disorders: No Hx Family Genitourinary Disorders: No Hx Family Endocrine Disorder: No Hx Family Musculoskeletal Disorders: No Hx Family Neuromuscular Disorders: No Hx Family Neurologic Disorders: No Hx Family HEENT Disorders: No Hx Family Autoimmune Disorders: No Hx Family Reproductive Disorders: No Hx Family Psychosocial Disorders: No Hx Family Medical Disorders: No Brother Living Status: Still Living Hx Family Cardiac Disorders: No Hx Family Respiratory Disorders: No Hx Family Cancer: No Hx Family GI Disorders: No Hx Family Genitourinary Disorders: No Hx Family Endocrine Disorder: Yes Hx Family Musculoskeletal Disorders: No Hx Family Neuromuscular Disorders: No Hx Family Neurologic Disorders: No Hx Family HEENT Disorders: No Hx Family Autoimmune Disorders: No Hx Family Reproductive Disorders: No Hx Family Psychosocial Disorders: No Hx Family Medical Disorders: No Medications and Allergies Albuterol Neb [Proventil Neb] 2.5 mg IH Q6H PRN 10/31/14 [History] Aspirin 81 mg PO DAILY 10/31/14 [History] Atorvastatin [Lipitor] 10 mg PO HS 10/31/14 [History] Calcium Carbonate/Vitamin D3 [Calcium 600 + Vit D Tablet] 1 tab PO DAILY [History] Levothyroxine [Synthroid] 88 mcg PO DAILY 10/31/14 [History] Albuterol Sulfate [Proair Hfa] 2 puff IH Q4-6H PRN 04/16/16 [History] Fluticasone/Salmeterol [Advair 250-50 Diskus] 1 puff IH BID 04/16/16 [History] Guaifenesin [Mucinex] 600 mg PO BID PRN 04/16/16 [History] Raloxifene [Evista] 60 mg PO DAILY 04/16/16 [History] Allergies Sulfa (Sulfonamide Antibiotics) Allergy (Verified 10/31/14 16:15) Rash All Systems: A 10-system review of systems was performed and is negative for pertinent findings except as documented above in the HPI. Physical Examination Vital Signs: General: Thin white female, mild accessory muscle use and work of breathing noted at rest Eyes: nonicteric ENT: oropharynx moist Neck: supple, no lymphadenopathy Lungs: Poor air exchange bilaterally, no overt wheezing Cardiovascular: regular rate and rhythm Gastrointestinal: normoactive bowel sounds, soft, non-tender, non-distended Integumentary: normal Extremities: no cyanosis, no edema Musculoskeletal: no deformities Neuro: normal mental status, non-focal exam Psych: mood appropriate, affect normal although she is tearful from time to time Results - Laboratory Findings CBC and BMP: 04/18/16 04:25 04/18/16 04:25 ABG ABG pH 7.42 pH Units (7.32-7.45) 04/16/16 15:46 ABG pCO2 41 mmHg (35-45) 04/16/16 15:46 ABG pO2 115 mmHg (85-104) H 04/16/16 15:46 ABG O2 Saturation 99 % (95-98) H 04/16/16 15:46 PT/INR, D-dimer D-Dimer 308 ng/mLFEU (0-500) 04/16/16 16:09 Abnormal lab findings: Abnormal lab results WBC 13.3 K/mcL (4.3-11.1) H D 04/18/16 04:25 Neutrophils # 12.3 K/mcL (1.6-8.9) H 04/18/16 04:25 ABG pO2 115 mmHg (85-104) H 04/16/16 15:46 ABG Total CO2 27.9 mEq/L (20-26) H 04/16/16 15:46 ABG O2 Saturation 99 % (95-98) H 04/16/16 15:46 Chloride 113 mEq/L (98-109) H 04/18/16 04:25 BUN/Creatinine Ratio 30 (6-26) H 04/18/16 04:25 Glucose 148 mg/dL (70-99) H 04/18/16 04:25 Calculated Osmolality 303 (280-300) H 04/18/16 04:25 Calcium 8.5 mg/dL (8.6-10.8) L 04/18/16 04:25 - Clinical Findings Intake & Output: Intake & Output 04/17/16 04/18/16 04/18/16 23:59 07:59 15:59 Intake Total 240 / 240 1550 / 1550 Output Total 300 / 300 Balance 240 / 240 1250 / 1250 Consult Discharge Plan - Plan Referrals: Julia Palacio, FOOD MIXER [Advanced Practice Nurse] - 04/26/16 3:00 pm (SCHEDULED APPT FOR 04/18/16 HAS BEEN CANCELLED AND CHANGED TO 04/26/16 AT 3PM FOR HOSPITAL FOLLOW UP)
--- NOTE | 2016-04-18 08:28 | Internal Med Progress Note ---
<Henry Ho - Last Filed: 04/18/16 14:13> Date of Encounter: 04/18/16 Time of Encounter: 08:28 - Assessment and plan (1) Acute exacerbation of chronic obstructive pulmonary disease (COPD) Current Visit: Yes Status: Acute Assessment and plan: Patient was admitted with acute respiratory failure in setting of severe emphysema and can be acquired pneumonia. She was tachypnic, and hypoxic with chest x-ray demonstrating right lower lobe consolidation-likely old. Patient states that she does not use oxygen at home, she is a former smoker but does not smoke currently. She does live with her spouse who is a daily smoker and has dementia. Plan: - Patient switched to Prednisone PO daily from Solu-Medrol - Continue inpatient scheduled respiratory therapy. - Pulmonary involved in care and plans for outpatient follow up. - O2 evaluation for potential home oxygen. - Continue azithromycin every 24 hours (2) Acute respiratory failure with hypoxia Current Visit: Yes Status: Acute Assessment and plan: Patient presents with acute hypoxic respiratory failure in the setting of COPD exacerbation. Patient is likely hypoxic at home as she has not followed up with pulmonology and does not wear oxygen at home. She presents with severe emphysema body habitus, secondary muscle use, and imaging studies have been reviewed demonstrating severe stomach changes. Plan: - As stated above. (3) Community acquired pneumonia Current Visit: Yes Status: Acute Assessment and plan: Patient recently treated for community-acquired pneumonia, chest x-ray demonstrates right lower lobe consolidation likely residual finding from recent acquired pneumonia. As the patient presents with acute hypoxic respiratory failure will treat community-acquired pneumonia and COPD exacerbation. Plan: - Continue Azithromycin. (4) Hypothyroidism Current Visit: Yes Status: Acute Assessment and plan: Patient is a history of hypothyroidism, TSH is 0.539. plan to continue patient's current dose of levothyroxine 88 mcg by mouth daily. Qualifiers: Hypothyroidism type: unspecified Qualified Code(s): E03.9 - Hypothyroidism , unspecified (5) DVT prophylaxis Current Visit: Yes Status: Acute Assessment and plan: DVT prophylaxis includes Lovenox 40 mg subcutaneously daily. - Subjective Interval history: Mrs. Jara 71-year-old female has been seen and evaluated patient bed side she just returned from PFTtesting and feels worn out.she feels overall her breathing is much improved compared to yesterday and she is not struggling to take every breath. she denies any chest pain, chest pressure palpitations abdominal pain, nausea or vomiting. She feels better with the inhalers. I discussed finding on her PFT and she demonstrates concern and says she has never received a diagnosis of COPDE in the past. She says she has been using her husbands nebulizer at home and using his Symbacort occasionally. She denies smoking but her smokes. She is open to starting pulmonary rehab and following up with pulmonology in the outpatient setting. - Constitutional Vitals: Temp Pulse Resp BP Pulse Ox 97.7 F 95 20 129/72 99 04/18/16 04:00 04/18/16 04:00 04/18/16 04:00 04/18/16 04:00 04/18/16 04:00 General appearance: Present: cachectic, A&O X 3, pleasant, no acute distress - Head Head exam: Present: atraumatic, normocephalic - Eye Eye exam: Present: PERRL, conjuntiva pink, sclera anicteric - ENT ENT exam: Present: mucous membranes moist - Neck Neck exam general surgery: Present: supple, trachea midline - Respiratory Additional comments: Continues to have diffuse diminished inspiratory and expiratory breathsounds. with diffuse inspiratory and expiratory wheeze. - Cardiovascular Cardiovascular exam: Present: RRR - GI/Abdominal GI/Abdominal exam: Present: normal bowel sounds, soft - Extremities Exam Extremities exam: Present: warm, radial pulses palpable and symetrical. Absent : pedal edema - Back Exam Back exam: Present: normal inspection - Neurological Exam Neurological exam: Present: alert, oriented X3, strengths equal and symetr throughout - Psychiatric Psychiatric exam: Present: flat affect - Skin Skin exam: Present: warm Internal Medicine: Result - Labs CBC & Chem 7: 04/18/16 04:25 04/18/16 04:25 Labs: Short CBC 04/18/16 Range/Units 04:25 WBC 13.3 H D (4.3-11.1) K/mcL Hgb 13.1 (11.5-15.4) g/dL Hct 40.2 (35.3-44.9) % Plt Count 202 (140-400) K/mcL Neutrophils # 12.3 H (1.6-8.9) K/mcL BMP 04/18/16 04:25 Sodium 144 Potassium 4.1 Chloride 113 H Carbon Dioxide 25 BUN 20 Creatinine 0.67 Glucose 148 H Calcium 8.5 L - ABG Interpretation ABG results: ABG ABG pH 7.42 pH Units (7.32-7.45) 04/16/16 15:46 ABG pCO2 41 mmHg (35-45) 04/16/16 15:46 ABG pO2 115 mmHg (85-104) H 04/16/16 15:46 ABG O2 Saturation 99 % (95-98) H 04/16/16 15:46 PT/INR, D-dimer D-Dimer 308 ng/mLFEU (0-500) 04/16/16 16:09 Consult Discharge Plan - Plan Referrals: Julia Palacio, COST REDUCTION ENGINEER [Advanced Practice Nurse] - 04/26/16 3:00 pm (SCHEDULED APPT FOR 04/18/16 HAS BEEN CANCELLED AND CHANGED TO 04/26/16 AT 3PM FOR HOSPITAL FOLLOW UP) <Bart Martin - Last Filed: 04/18/16 19:48> Date of Encounter: 04/18/16 - Assessment and plan (1) Acute respiratory failure with hypoxia Current Visit: Yes Status: Acute (2) Acute exacerbation of chronic obstructive pulmonary disease (COPD) Current Visit: Yes Status: Acute (3) Hypothyroidism Current Visit: Yes Status: Acute Qualifiers: Hypothyroidism type: unspecified Qualified Code(s): E03.9 - Hypothyroidism , unspecified (4) Hyperlipidemia Current Visit: Yes Status: Chronic Qualifiers: Hyperlipidemia type: unspecified Qualified Code(s): E78.5 - Hyperlipidemia , unspecified - Constitutional Vitals: Temp Pulse Resp BP Pulse Ox 97.9 F 96 22 179/93 96 04/18/16 16:00 04/18/16 16:00 04/18/16 16:49 04/18/16 16:00 04/18/16 16:49 Internal Medicine: Result - Labs CBC & Chem 7: 04/18/16 04:25 04/18/16 04:25 Labs: Short CBC 04/18/16 Range/Units 04:25 WBC 13.3 H D (4.3-11.1) K/mcL Hgb 13.1 (11.5-15.4) g/dL Hct 40.2 (35.3-44.9) % Plt Count 202 (140-400) K/mcL Neutrophils # 12.3 H (1.6-8.9) K/mcL BMP 04/18/16 04:25 Sodium 144 Potassium 4.1 Chloride 113 H Carbon Dioxide 25 BUN 20 Creatinine 0.67 Glucose 148 H Calcium 8.5 L - ABG Interpretation ABG results: ABG ABG pH 7.42 pH Units (7.32-7.45) 04/16/16 15:46 ABG pCO2 41 mmHg (35-45) 04/16/16 15:46 ABG pO2 115 mmHg (85-104) H 04/16/16 15:46 ABG O2 Saturation 99 % (95-98) H 04/16/16 15:46 PT/INR, D-dimer D-Dimer 308 ng/mLFEU (0-500) 04/16/16 16:09 - Attending Attestation I examined this patient and my medical decision-making was reviewed with the Resident Physician on 04/18/16. I agree with the documented findings, disposition and treatment plan as described except to the extent set forth below. Ms. Jara is currently admitted for hypoxic resp failure and exac COPD. She remains moderate to high risk due to potential of worsening respiratory failure. Ms. Jara is feeling somewhat better today. Still with cough and dyspnea. No fever. No GI symptoms. Exam Alert. Mild resp distress Heart reg Wheeze present. I/P 1. Hypoxic resp failure 2. COPD Further diagnoses and plan as above.
[2016-04-18] MEDS: Budesonide/Formoterol 160/4.5 MDI IH SCH ×2 (10:52→19:54)
[2016-04-18] MEDS: VITAMIN D3 PO SCH (11:43)
[2016-04-18] MEDS: CALCIUM CARBONATE PO SCH (11:43)
[2016-04-18] MEDS: Aspirin 81 MG TAB.CHEW PO SCH (11:43)
[2016-04-18] MEDS: predniSONE 20 MG TABLET PO SCH (11:43)
[2016-04-18] MEDS: Azithromycin 500 MG in D5% in Water 250 ML IVPB SCH (16:41)
[2016-04-18] MEDS: Albuterol 2.5 MG/3 ML NEBULIZER IH PRN (16:49)
[2016-04-19 05:52] LABS: Basophils % 0.2 %; Hematocrit 42.3 % (35.3-44.9); Hemoglobin 13.6 g/dL (11.5-15.4); Immature Granulocytes % 0.3 % (0-4); Lymphocytes # 1.2 K/mcL (0.6-4.6); Lymphocytes % 9.8 %; Mean Corpuscular HGB Conc 32.2 g/dL (31.6-35.5); Mean Corpuscular Hemoglobin 31.9 pg (28.0-33.3); Mean Corpuscular Volume 99.1 fL (83.0-100.0); Mean Platelet Volume 10.3 fL (9.4-12.4); Monocytes # 0.6 K/mcL (0.0-1.3); Monocytes % 4.6 %; Neutrophils # 10.4 K/mcL (1.6-8.9); Platelet Count 199 K/mcL (140-400); Red Blood Count 4.27 M/mcL (3.82-4.97); Red Cell Distribution Width 13.4 % (11.5-14.5); Segmented Neutrophils % 85.1 %
[2016-04-19 06:09] LABS: BUN/Creatinine Ratio 29 (6-26); Blood Urea Nitrogen 18 mg/dL (7-20); Calcium 8.1 mg/dL (8.6-10.8); Carbon Dioxide 27 mEq/L (19-29); Chloride 107 mEq/L (98-109); Glucose 89 mg/dL (70-99); Osmolality,Calculated 291 (280-300); Potassium 3.9 mEq/L (3.5-4.5); Sodium 140 mEq/L (136-145); eGFR For African Americans > 60 (> 60); eGFR For Non-African Americans > 60 (> 60)
[2016-04-19] MEDS: *HR* Enoxaparin 40 MG/0.4 ML SYRINGE SQ SCH (06:24)
[2016-04-19] MEDS: CALCIUM CARBONATE PO SCH (09:56)
[2016-04-19] MEDS: predniSONE 20 MG TABLET PO SCH (09:56)
[2016-04-19] MEDS: Aspirin 81 MG TAB.CHEW PO SCH (09:56)
[2016-04-19] MEDS: VITAMIN D3 PO SCH (09:56)
[2016-04-19] MEDS: Budesonide/Formoterol 160/4.5 MDI IH SCH ×2 (10:56→22:54)
[2016-04-19] MEDS: Albuterol 2.5 MG/3 ML NEBULIZER IH PRN ×2 (11:01→17:08)
[2016-04-19] MEDS: Tiotropium 18 MCG inhalation IH SCH (11:02)
[2016-04-19] MEDS ORDERED: Ipratropium/Albuterol Neb 3 ML IH PRN (12:48)
--- NOTE | 2016-04-19 14:35 | Discharge Summary ---
<Henry Ho Adam - Last Filed: 04/19/16 14:19> Date of Encounter: 04/19/16 Time of Encounter: 14:19 - Discharge Diagnosis (1) Acute exacerbation of chronic obstructive pulmonary disease (COPD) Status: Acute (2) Acute respiratory failure with hypoxia Status: Acute (3) Community acquired pneumonia Status: Acute (4) Hypothyroidism Status: Acute Qualifiers: Hypothyroidism type: unspecified Qualified Code(s): E03.9 - Hypothyroidism , unspecified (5) DVT prophylaxis Status: Acute - Discharge Medications Prescriptions: Albuterol Neb [Proventil Neb] 2.5 mg IH Q6H PRN #100 inhsol PRN Reason: Shortness Of Breath Azithromycin [Zithromax] 500 mg PO DAILY #1 tablet PredniSONE 40 mg PO DAILY 3 Days Tiotropium [Spiriva] 18 mcg IH DAILY@0700 #1 inh Home Medications: Aspirin 81 mg PO DAILY 10/31/14 [History] Atorvastatin [Lipitor] 10 mg PO HS 10/31/14 [History] Calcium Carbonate/Vitamin D3 [Calcium 600 + Vit D Tablet] 1 tab PO DAILY [History] Levothyroxine [Synthroid] 88 mcg PO DAILY 10/31/14 [History] Albuterol Sulfate [Proair Hfa] 2 puff IH Q4-6H PRN 04/16/16 [History] Fluticasone/Salmeterol [Advair 250-50 Diskus] 1 puff IH BID 04/16/16 [History] Guaifenesin [Mucinex] 600 mg PO BID PRN 04/16/16 [History] Raloxifene [Evista] 60 mg PO DAILY 04/16/16 [History] Albuterol Neb [Proventil Neb] 2.5 mg IH Q6H PRN #100 inhsol 04/19/16 [Rx] Azithromycin [Zithromax] 500 mg PO DAILY #1 tablet 04/19/16 [Rx] PredniSONE 40 mg PO DAILY 3 Days 04/19/16 [Rx] Tiotropium [Spiriva] 18 mcg IH DAILY@0700 #1 inh 04/19/16 [Rx] Allergies/Adverse Reactions: Allergies Sulfa (Sulfonamide Antibiotics) Allergy (Verified 10/31/14 16:15) Rash Procedures/tests Complete & Pending: Procedures Performed prior 72 hours Category Date Time Status SP PFT ba bronchodilator Routine Y 04/18/16 10:00 Completed Date of admission: 04/17/16 15:55 Primary care physician: Davide Kim MD Consults: 04/18/16 10:24 Consult to Interpret Exam [CONS] Routine Consulting Provider: Ellen Eli Consult to Interpret Exam: Interpret PFT - Patient Status Disposition: Home, Self-Care Condition: Fair - Discharge Instructions Follow Up With: Julia Palacio, SQUIRREL MAN [Advanced Practice Nurse] - 04/26/16 3:00 pm (SCHEDULED APPT FOR 04/18/16 HAS BEEN CANCELLED AND CHANGED TO 04/26/16 AT 3PM FOR HOSPITAL FOLLOW UP) Hospital course: Ms. Jara is a 71 year old female - Time Spent with Patient Total time spent providing and/or coordinating discharge services: - Constitutional Vitals: Temp Pulse Resp BP Pulse Ox 98.2 F 102 24 158/85 94 L 04/19/16 11:18 04/19/16 11:18 04/19/16 11:18 04/19/16 11:18 04/19/16 12:22 General appearance: Present: cachectic, A&O X 3, pleasant, no acute distress <Bart Martin - Last Filed: 04/20/16 10:53> Date of Encounter: 04/20/16 Time of Encounter: 10:00 - Discharge Diagnosis (1) Acute respiratory failure with hypoxia Priority: Primary Status: Acute (2) Acute exacerbation of chronic obstructive pulmonary disease (COPD) Priority: Primary Status: Acute (3) Hypothyroidism Priority: Secondary Status: Acute Qualifiers: Hypothyroidism type: unspecified Qualified Code(s): E03.9 - Hypothyroidism , unspecified (4) Hyperlipidemia Priority: Secondary Status: Chronic Qualifiers: Hyperlipidemia type: mixed hyperlipidemia Qualified Code(s): E78.2 - Mixed hyperlipidemia (5) Community acquired pneumonia Priority: Secondary Status: Acute (6) Osteoporosis Priority: Secondary Status: Chronic Procedures/tests Complete & Pending: Procedures Performed prior 72 hours Category Date Time Status SP PFT ba bronchodilator Routine Y 04/18/16 10:00 Completed Date of admission: 04/17/16 15:55 Primary care physician: Davide Kim MD Consults: 04/18/16 10:24 Consult to Interpret Exam [CONS] Routine Consulting Provider: Ellen Eli Consult to Interpret Exam: Interpret PFT Discharging clinician: Bart Martin Anticipated date of discharge: 04/20/16 - Patient Status Functional capacity at discharge: independent ambulation Overall status at discharge: patient is progressing back to baseline - Diet and Activity Activity: increase activity as tolerated, wear oxygen at all times Diet: advance to your usual diet Hospital course: Ms. Jara is a 71 year old female with hx of HLD and osteoporosis presented to ED with persistent dyspnea. She had been seen in PCP office and completed 10day course of Augmentin without much relief. She was unable to do ADLs without significant dyspnea. She has been using her 's nebulizer at home with relief. She was evaluated in ED and admitted for further evaluation and treatment. Ms. Jara was admitted to med surg. She was started on steroids (PO), abx and aerosols as well as continuous oxygen. She had no relief the first day and was switched to IV steroids. She began to slowly improve at that time. She underwent PFTs and was evaluated by pulmonary service with adjustment in medications. Ms. Jara had continued slow improvement in her symptoms. She qualified for home oxygen. Her symptoms overall were controlled and her vitals were stable. Arrangements were made for nebulizer and oxygen at home. She was subsequently discharged for outpatient follow up. - Time Spent with Patient Total time spent providing and/or coordinating discharge services: 40min - Constitutional Vitals: Temp Pulse Resp BP Pulse Ox 97.6 F 84 17 147/83 100 04/20/16 07:37 04/20/16 07:37 04/20/16 07:37 04/20/16 07:37 04/20/16 09:35 General appearance: Present: cachectic, A&O X 3, pleasant, no acute distress - Head Head exam: Present: normocephalic - Eye Eye exam: Present: EOMI, conjuntiva pink, sclera anicteric - ENT ENT exam: Present: mucous membranes dry - Respiratory Respiratory exam: Present: rhonchi, wheezes - Cardiovascular Cardiovascular exam: Present: RRR. Absent: tachycardia - GI/Abdominal GI/Abdominal exam: Present: soft. Absent: mass, tenderness - Extremities Exam Extremities exam: Present: warm. Absent: pedal edema - Neurological Exam Neurological exam: Present: alert, oriented X3 - Psychiatric Psychiatric exam: Present: anxious - Skin Skin exam: Present: warm. Absent: rash
--- NOTE | 2016-04-19 15:01 | Internal Med Progress Note ---
<Henry Ho - Last Filed: 04/19/16 14:52> Date of Encounter: 04/19/16 Time of Encounter: 09:00 - Assessment and plan (1) Acute exacerbation of chronic obstructive pulmonary disease (COPD) Current Visit: Yes Status: Acute Assessment and plan: 04/19/2016: Patient continues to have shortness of breath but improved compared to admission. Patient still requires 3 L nasal cannula oxygen but does not demonstrate respiratory distress. Patient continues to have diminished breath sounds diffusely with expiratory wheeze. Patient is a leukocytosis of 12.2 likely secondary to the addition of by mouth steroids. Patient is afebrile and blood pressure is stable. Patient was admitted with acute respiratory failure in setting of severe emphysema and can be acquired pneumonia. She was tachypnic, and hypoxic with chest x-ray demonstrating right lower lobe consolidation-likely old. Patient states that she does not use oxygen at home, she is a former smoker but does not smoke currently. She does live with her spouse who is a daily smoker and has dementia. Plan: - Continue current prednisone dose. - Dual nebs scheduled during inpatient stay. - Pulmonary involved in care and plans for outpatient follow up. - Patient failed O2 evaluation and requires home oxygen, home oxygen prescription filled out an inpatient chart. - Continue inpatient azithromycin by mouth. Patients will require one final dose after discharge tomorrow. Prescription is in chart. - Prescription written for albuterol nebulizer 2.5 mg inhaled every 6 hours when necessary - Prescription written for home by mouth prednisone 40 mg by mouth daily for 3 days post discharge - Patient to continue taking Advair inhaled at home daily, prescription written for Advair inhaler (2) Acute respiratory failure with hypoxia Current Visit: Yes Status: Acute Assessment and plan: Patient presents with acute hypoxic respiratory failure in the setting of COPD exacerbation. Patient is likely hypoxic at home as she has not followed up with pulmonology and does not wear oxygen at home. She presents with severe emphysema body habitus, secondary muscle use, and imaging studies have been reviewed demonstrating severe stomach changes. Plan: - As stated above. (3) Community acquired pneumonia Current Visit: Yes Status: Acute Assessment and plan: Patient recently treated for community-acquired pneumonia, chest x-ray demonstrates right lower lobe consolidation likely residual finding from recent acquired pneumonia. As the patient presents with acute hypoxic respiratory failure will treat community-acquired pneumonia and COPD exacerbation. Plan: - Continue Azithromycin. (4) Hypothyroidism Current Visit: Yes Status: Acute Assessment and plan: Patient is a history of hypothyroidism, TSH is 0.539. plan to continue patient's current dose of levothyroxine 88 mcg by mouth daily. Qualifiers: Hypothyroidism type: unspecified Qualified Code(s): E03.9 - Hypothyroidism , unspecified (5) DVT prophylaxis Current Visit: Yes Status: Acute Assessment and plan: DVT prophylaxis includes Lovenox 40 mg subcutaneously daily. - Subjective Interval history: Mrs. Jara 71-year-old female has been seen and evaluated patient bed side this morning. She says she continues to have shortness of breath that is not greatly improved from yesterday. She denies any change in vision, sore throat, chest pain, palpitations or chest pressure, abdominal pain, nausea, vomiting, diarrhea or constipation or swelling in extremities. She was a little concerned over the evening regarding asking for DuoNeb treatments because she did not want to bother any staff members. I reiterated to the patient that we are here to help her and that we do not want her to suffer in that she should ask for anything that she needs. The patient does not have any further questions or concerns at this time. - Constitutional Vitals: Temp Pulse Resp BP Pulse Ox 98.2 F 102 24 158/85 94 L 04/19/16 11:18 04/19/16 11:18 04/19/16 11:18 04/19/16 11:18 04/19/16 12:22 General appearance: Present: cachectic, A&O X 3, pleasant, no acute distress - Head Head exam: Present: atraumatic, normocephalic - Eye Eye exam: Present: PERRL, conjuntiva pink, sclera anicteric - ENT ENT exam: Present: mucous membranes moist - Neck Neck exam general surgery: Present: supple, trachea midline - Respiratory Additional comments: Patient has diffusely diminished bronchial vesicular breath sounds with an expiratory wheeze. Breath sounds are more diminished at the lung bases. - Cardiovascular Cardiovascular exam: Present: RRR - GI/Abdominal GI/Abdominal exam: Present: normal bowel sounds, soft. Absent: tenderness - Extremities Exam Extremities exam: Present: warm, radial pulses palpable and symetrical - Back Exam Back exam: Present: normal inspection - Neurological Exam Neurological exam: Present: alert, no focal deficits, strengths equal and symetr throughout - Psychiatric Psychiatric exam: Present: anxious, normal affect - Skin Skin exam: Present: warm Internal Medicine: Result - Labs CBC & Chem 7: 04/19/16 05:09 04/19/16 05:09 Labs: Short CBC 04/19/16 Range/Units 05:09 WBC 12.2 H (4.3-11.1) K/mcL Hgb 13.6 (11.5-15.4) g/dL Hct 42.3 (35.3-44.9) % Plt Count 199 (140-400) K/mcL Neutrophils # 10.4 H (1.6-8.9) K/mcL BMP 04/19/16 05:09 Sodium 140 Potassium 3.9 Chloride 107 Carbon Dioxide 27 BUN 18 Creatinine 0.63 Glucose 89 Calcium 8.1 L - ABG Interpretation ABG results: ABG ABG pH 7.42 pH Units (7.32-7.45) 04/16/16 15:46 ABG pCO2 41 mmHg (35-45) 04/16/16 15:46 ABG pO2 115 mmHg (85-104) H 04/16/16 15:46 ABG O2 Saturation 99 % (95-98) H 04/16/16 15:46 PT/INR, D-dimer D-Dimer 308 ng/mLFEU (0-500) 04/16/16 16:09 Consult Discharge Plan - Plan Referrals: Julia Palacio, CONSULTING APPLICATION ENGINEER [Advanced Practice Nurse] - 04/26/16 3:00 pm (SCHEDULED APPT FOR 04/18/16 HAS BEEN CANCELLED AND CHANGED TO 04/26/16 AT 3PM FOR HOSPITAL FOLLOW UP) Prescriptions: Albuterol Neb [Proventil Neb] 2.5 mg IH Q6H PRN #100 inhsol PRN Reason: Shortness Of Breath Azithromycin [Zithromax] 500 mg PO DAILY #1 tablet PredniSONE 40 mg PO DAILY 3 Days Tiotropium [Spiriva] 18 mcg IH DAILY@0700 #1 inh <Bart Martin - Last Filed: 04/19/16 17:46> Date of Encounter: 04/19/16 - Assessment and plan (1) Acute respiratory failure with hypoxia Current Visit: Yes Status: Acute (2) Acute exacerbation of chronic obstructive pulmonary disease (COPD) Current Visit: Yes Status: Acute (3) Hypothyroidism Current Visit: Yes Status: Acute Qualifiers: Hypothyroidism type: unspecified Qualified Code(s): E03.9 - Hypothyroidism , unspecified (4) Hyperlipidemia Current Visit: Yes Status: Chronic Qualifiers: Hyperlipidemia type: mixed hyperlipidemia Qualified Code(s): E78.2 - Mixed hyperlipidemia - Constitutional Vitals: Temp Pulse Resp BP Pulse Ox 98.5 F 93 18 142/89 95 04/19/16 16:52 04/19/16 16:52 04/19/16 17:08 04/19/16 16:52 04/19/16 17:08 Internal Medicine: Result - Labs CBC & Chem 7: 04/19/16 05:09 04/19/16 05:09 Labs: Short CBC 04/19/16 Range/Units 05:09 WBC 12.2 H (4.3-11.1) K/mcL Hgb 13.6 (11.5-15.4) g/dL Hct 42.3 (35.3-44.9) % Plt Count 199 (140-400) K/mcL Neutrophils # 10.4 H (1.6-8.9) K/mcL BMP 04/19/16 05:09 Sodium 140 Potassium 3.9 Chloride 107 Carbon Dioxide 27 BUN 18 Creatinine 0.63 Glucose 89 Calcium 8.1 L - ABG Interpretation ABG results: ABG ABG pH 7.42 pH Units (7.32-7.45) 04/16/16 15:46 ABG pCO2 41 mmHg (35-45) 04/16/16 15:46 ABG pO2 115 mmHg (85-104) H 04/16/16 15:46 ABG O2 Saturation 99 % (95-98) H 04/16/16 15:46 PT/INR, D-dimer D-Dimer 308 ng/mLFEU (0-500) 04/16/16 16:09 - Attending Attestation I examined this patient and my medical decision-making was reviewed with the Resident Physician on 04/19/16. I agree with the documented findings, disposition and treatment plan as described except to the extent set forth below. Ms. Avalos is currently admitted for acute hypoxic respiratory failure and acute exacerbation of COPD. She is moderate to high risk due to potential for worsening respiratory symptoms and failure. Ms. Avalos is doing OK today. She is very frightened about everything and the future. She is tearful. No pain. No GI symptoms. Exam Alert. Comfortable but tearful. Heart reg Diminished breath sounds. I/P 1. Acute hypoxic respiratory failure 2. Acute exac COPD Further diagnoses and plan as above.
[2016-04-19] MEDS: Azithromycin 250 MG TABLET PO SCH (17:04)
[2016-04-20 04:53] LABS: Basophils % 0.1 %; Eosinophils # 0.1 K/mcL (0.0-0.6); Eosinophils % 0.5 %; Hematocrit 39.9 % (35.3-44.9); Hemoglobin 13.3 g/dL (11.5-15.4); Immature Granulocytes % 0.4 % (0-4); Lymphocytes # 1.5 K/mcL (0.6-4.6); Lymphocytes % 13.6 %; Mean Corpuscular HGB Conc 33.3 g/dL (31.6-35.5); Mean Corpuscular Hemoglobin 31.9 pg (28.0-33.3); Mean Corpuscular Volume 95.7 fL (83.0-100.0); Mean Platelet Volume 9.8 fL (9.4-12.4); Monocytes # 0.6 K/mcL (0.0-1.3); Monocytes % 5.2 %; Neutrophils # 8.9 K/mcL (1.6-8.9); Platelet Count 192 K/mcL (140-400); Red Blood Count 4.17 M/mcL (3.82-4.97); Red Cell Distribution Width 13.2 % (11.5-14.5); Segmented Neutrophils % 80.2 %
[2016-04-20 05:06] LABS: Alanine Aminotransferase 19 Units/L (0-55); Albumin 2.8 g/dL (3.5-5.0); Alkaline Phosphatase 57 Units/L (38-126); Aspartate Amino Transferase 14 Units/L (5-34); BUN/Creatinine Ratio 24 (6-26); Bilirubin,Total 0.3 mg/dL (0.2-1.2); Blood Urea Nitrogen 15 mg/dL (7-20); Calcium 8.3 mg/dL (8.6-10.8); Carbon Dioxide 29 mEq/L (19-29); Chloride 106 mEq/L (98-109); Globulin 2.8 g/dL (2.4-3.5); Glucose 92 mg/dL (70-99); Osmolality,Calculated 294 (280-300); Potassium 3.7 mEq/L (3.5-4.5); Sodium 142 mEq/L (136-145); Total Protein 5.6 g/dL (6.0-8.3); eGFR For African Americans > 60 (> 60); eGFR For Non-African Americans > 60 (> 60)
[2016-04-20] MEDS: *HR* Enoxaparin 40 MG/0.4 ML SYRINGE SQ SCH (06:07)
[2016-04-20 07:39] VITALS: BP 147/83
[2016-04-20] MEDS: Aspirin 81 MG TAB.CHEW PO SCH (09:32)
[2016-04-20] MEDS: Azithromycin 250 MG TABLET PO SCH (09:32)
[2016-04-20] MEDS: predniSONE 20 MG TABLET PO SCH (09:32)
[2016-04-20] MEDS: CALCIUM CARBONATE PO SCH (09:33)
[2016-04-20] MEDS: VITAMIN D3 PO SCH (09:33)
--- NOTE | 2016-04-20 10:57 | Event Note ---
Date of Encounter: 04/20/16 Time of Encounter: 10:00 Pt discharged today. Discharge summary completed today.
[2016-04-20] MEDS: Tiotropium 18 MCG inhalation IH SCH (11:34)
[2016-04-20] MEDS: Budesonide/Formoterol 160/4.5 MDI IH SCH (11:35)
[2016-04-20] MEDS: Albuterol 2.5 MG/3 ML NEBULIZER IH PRN (11:35)
--- NOTE | 2016-04-22 21:41 | Pulmonary Function Test Report ---
PFT Procedure Report Date of procedure: 04/18/16 Procedure Note: CONCLUSION: SPIROMETRY: Very severe obstructive ventilator impairment without significant bronchodilator response. FVC: 1.74, 55% predicted FEV1: 0.57, 23% predicted FEV1/FVC (%): 33 LUNG VOLUMES: FVC reduced relative to SVC suggesting air-trapping FLOW VOLUME LOOP: Obstructive Comparing to PFT was done in 2011, there is significant worsening of FEV1
== END 2016-04-20 13:39 | disposition home or self-care (01) | DRG 190 ==
LOC: 2NENU 15:18 → EMEROO 15:18 → 2NENU 19:55
PROVIDERS: ADMIT Internal Medicine; ATTEND Internal Medicine

== ENCOUNTER 2019-03-31 19:44 | Inpatient (IN) ==
[2019-03-31] MEDS ORDERED: Ipratropium/Albuterol Neb 3 ML IH ONE (19:58)
[2019-03-31 20:38] LABS: Hematocrit 42.8 % (35.3-44.9); Hemoglobin 14.3 g/dL (11.5-15.4); Mean Corpuscular HGB Conc 33.4 g/dL (31.6-35.5); Mean Corpuscular Volume 95.7 fL (83.0-100.0); Mean Platelet Volume 10.2 fL (9.4-12.4); Platelet Count 235 K/mcL (140-400); Red Blood Count 4.47 M/mcL (3.82-4.97); Red Cell Distribution Width 14.4 % (11.5-14.5); White Blood Count 12.3 K/mcL (4.3-11.1)
[2019-03-31] MEDS ORDERED: Acetaminophen 325 MG TABLET PO ONE (20:39)
[2019-03-31 21:00] LABS: BUN/Creatinine Ratio 16 (6-26); Blood Urea Nitrogen 13 mg/dL (8-23); Calcium 9.6 mg/dL (8.6-10.3); Carbon Dioxide 27 mEq/L (23-29); Chloride 99 mEq/L (98-107); Glucose 131 mg/dL (70-105); Osmolality,Calculated 284 (280-300); Potassium 4.5 mEq/L (3.5-5.1); Sodium 136 mEq/L (136-145); Troponin I < 0.03 ng/mL (< 0.04); eGFR For African Americans > 60 (> 60); eGFR For Non-African Americans > 60 (> 60)
[2019-03-31 21:19] LABS: Bilirubin,Urine Negative (Negative); Blood,Urine Negative (Negative); Clarity,Urine Clear (Clear); Color,Urine Yellow (Yellow); Glucose,Urine (UA) Normal (Normal); Ketones,Urine Trace mg/dL (Negative); Leukocyte Esterase,Urine Negative (Negative); Nitrite,Urine Negative (Negative); Protein,Urine Negative (Neg-Trace); Specific Gravity,Urine 1.019 (1.010-1.025); Urobilinogen,Urine Normal (Normal)
[2019-03-31] MEDS ORDERED: Ketorolac 30 MG/ML VIAL IVP ONE (21:31)
[2019-03-31] MEDS ORDERED: 0.9 % Sodium Chloride 1,000 ML IVC ONE (21:31)
[2019-03-31] MEDS ORDERED: Ondansetron 8 MG in 0.9 % Sodium Chloride 50 ML IVPB ONE (21:31)
[2019-03-31] MEDS ORDERED: cefTRIAXone 1,000 MG in 0.9 % Sodium Chloride Mini Bag 100 ML IVPB ONE (21:33)
[2019-03-31] MEDS ORDERED: Azithromycin 500 MG in 0.9 % Sodium Chloride 250 ML IVPB ONE (21:34)
[2019-03-31] MEDS ORDERED: Ondansetron 4 MG/2 ML VIAL IVP PRN (21:48)
[2019-03-31] MEDS ORDERED: Ondansetron 4 MG/2 ML VIAL ONE (21:50)
[2019-04-01] MEDS ORDERED: Ondansetron 4 MG/2 ML VIAL IVP PRN (00:13)
[2019-04-01] MEDS ORDERED: Naloxone 0.4 MG/ML INJ IVP PRN (00:13)
[2019-04-01] MEDS ORDERED: Ipratropium/Albuterol Neb 3 ML ONE (00:41)
[2019-04-01] MEDS ORDERED: 0.9 % Sodium Chloride 1,000 ML ONE (00:46)
[2019-04-01] MEDS: Ipratropium/Albuterol Neb 3 ML IH SCH ×6 (00:50→19:43)
[2019-04-01] MEDS: 0.9 % Sodium Chloride 1,000 ML IVC SCH ×2 (00:50→11:42)
[2019-04-01] MEDS ORDERED: Ipratropium/Albuterol Neb 3 ML IH SCH (04:00)
[2019-04-01 05:17] LABS: Influenza A PCR Negative (Negative); Influenza B PCR Negative (Negative); Resp. Syncytial Virus PCR Positive (Negative)
[2019-04-01 05:38] LABS: Basophils % 0.1 %; Hematocrit 39.5 % (35.3-44.9); Hemoglobin 12.8 g/dL (11.5-15.4); Immature Granulocytes % 0.7 % (0-4); Lymphocytes # 0.4 K/mcL (0.6-4.6); Mean Corpuscular HGB Conc 32.4 g/dL (31.6-35.5); Mean Corpuscular Hemoglobin 31.4 pg (28.0-33.3); Mean Corpuscular Volume 97.1 fL (83.0-100.0); Mean Platelet Volume 10.6 fL (9.4-12.4); Monocytes # 0.3 K/mcL (0.0-1.3); Monocytes % 2.5 %; Neutrophils # 11.5 K/mcL (1.6-8.9); Platelet Count 210 K/mcL (140-400); Red Blood Count 4.07 M/mcL (3.82-4.97); Red Cell Distribution Width 14.6 % (11.5-14.5); Segmented Neutrophils % 93.7 %; White Blood Count 12.2 K/mcL (4.3-11.1)
[2019-04-01 06:00] LABS: BUN/Creatinine Ratio 15 (6-26); Blood Urea Nitrogen 13 mg/dL (8-23); Calcium 8.7 mg/dL (8.6-10.3); Carbon Dioxide 26 mEq/L (23-29); Chloride 106 mEq/L (98-107); Glucose 161 mg/dL (70-105); Magnesium 2.1 mg/dL (1.6-2.6); Osmolality,Calculated 296 (280-300); Phosphorous 2.8 mg/dL (2.7-4.5); Potassium 4.3 mEq/L (3.5-5.1); Sodium 141 mEq/L (136-145); eGFR For African Americans > 60 (> 60); eGFR For Non-African Americans > 60 (> 60)
[2019-04-01] MEDS: Tiotropium 18 MCG inhalation IH SCH ×2 (07:31→16:05)
[2019-04-01] MEDS ORDERED: MethylPREDNISolone 40 MG/ML VIAL IVP SCH (09:00)
[2019-04-01] MEDS ORDERED: Azithromycin desensitization 1 mg/mL IVP SCH (09:00)
[2019-04-01] MEDS: cefTRIAXone 1,000 MG in Water for inj. (sterile) 10 ML IVP SCH (09:22)
[2019-04-01] MEDS: Azithromycin 250 MG TABLET PO SCH (09:23)
[2019-04-01] MEDS: Aspirin 81 MG TAB.CHEW PO SCH (09:23)
[2019-04-01] MEDS: (Roflumilast [Daliresp] 500 MCG) PO SCH (09:32)
[2019-04-01] MEDS: MethylPREDNISolone 40 MG/ML VIAL IVP SCH (20:56)
[2019-04-01] MEDS: *HR* Heparin 5,000 UNIT/ML VIAL SQ SCH (20:56)
[2019-04-01] MEDS: Chloraseptic Spray 177 ML BOTTLE MM PRN (23:53)
[2019-04-02] MEDS: Ipratropium/Albuterol Neb 3 ML IH SCH ×7 (00:07→23:30)
[2019-04-02 03:05] LABS: Basophils % 0.2 %; Hematocrit 38.4 % (35.3-44.9); Hemoglobin 12.3 g/dL (11.5-15.4); Immature Granulocytes % 0.5 % (0-4); Lymphocytes # 0.3 K/mcL (0.6-4.6); Lymphocytes % 1.9 %; Mean Corpuscular Hemoglobin 31.7 pg (28.0-33.3); Mean Platelet Volume 10.6 fL (9.4-12.4); Monocytes # 0.3 K/mcL (0.0-1.3); Monocytes % 1.8 %; Neutrophils # 14.8 K/mcL (1.6-8.9); Platelet Count 209 K/mcL (140-400); Red Blood Count 3.88 M/mcL (3.82-4.97); Red Cell Distribution Width 14.8 % (11.5-14.5); Segmented Neutrophils % 95.6 %; White Blood Count 15.5 K/mcL (4.3-11.1)
[2019-04-02 03:16] LABS: Blood Urea Nitrogen 17 mg/dL (8-23); Carbon Dioxide 27 mEq/L (23-29); Chloride 108 mEq/L (98-107); Glucose 162 mg/dL (70-105); Osmolality,Calculated 297 (280-300); Potassium 4.2 mEq/L (3.5-5.1); Sodium 141 mEq/L (136-145)
[2019-04-02 03:46] LABS: Platelet Estimate Normal (Normal)
[2019-04-02 03:56] LABS: BUN/Creatinine Ratio 26 (6-26); eGFR For African Americans > 60 (> 60); eGFR For Non-African Americans > 60 (> 60)
[2019-04-02 05:02] LABS: Anisocytosis 1+ (Not Present)
[2019-04-02] MEDS: *HR* Heparin 5,000 UNIT/ML VIAL SQ SCH ×2 (06:26→16:18)
[2019-04-02] MEDS: MethylPREDNISolone 40 MG/ML VIAL IVP SCH (06:26)
[2019-04-02] MEDS: Budesonide/Formoterol 80/4.5 1 PUFF INH IH SCH ×2 (07:51→19:46)
[2019-04-02] MEDS: Tiotropium 18 MCG inhalation IH SCH (07:55)
[2019-04-02] MEDS: Ascorbic Acid 500 MG TABLET PO SCH (08:40)
[2019-04-02] MEDS: Multivit/Ca/Min/Fe/FA 1 TAB TABLET PO SCH (08:40)
[2019-04-02] MEDS: Azithromycin 250 MG TABLET PO SCH (08:40)
[2019-04-02] MEDS: Aspirin 81 MG TAB.CHEW PO SCH ×2 (08:41→18:49)
[2019-04-02] MEDS: (Roflumilast [Daliresp] 500 MCG) PO SCH ×3 (08:41→19:15)
[2019-04-02] MEDS: cefTRIAXone 1,000 MG in Water for inj. (sterile) 10 ML IVP SCH (08:41)
[2019-04-02] MEDS ORDERED: NON-FORMULARY MEDICATION 1 EACH EACH (Tiotropium Br/Olodaterol Hcl [Stiolto Respimat Inhal IH SCH (09:00)
[2019-04-02] MEDS: Chloraseptic Spray 177 ML BOTTLE MM PRN (09:06)
[2019-04-02] MEDS ORDERED: *HR* Midazolam HCl 5 MG/5 ML VIAL IVP ONE (10:31)
[2019-04-02] MEDS ORDERED: *HR* Etomidate 20 MG/10 ML AMPUL IVP ONE (10:31)
[2019-04-02] MEDS ORDERED: *HR* LORazepam 2 MG/ML VIAL IVP ONE (21:29)
[2019-04-03] MEDS ORDERED: 0.9 % Sodium Chloride 1,000 ML ONE (02:32)
[2019-04-03] MEDS ORDERED: MethylPREDNISolone 40 MG/ML VIAL IVP ONE (02:44)
[2019-04-03 03:02] LABS: ABG Base Excess 4 mEq/L (-2 to 3); ABG HCO3 36 mEq/L (21-27); ABG Oxygen Saturation 99 % (95-98); ABG PCO2 101 mmHg (35-45); ABG PH 7.16 pH Units (7.32-7.45); ABG PO2 158 mmHg (85-104); ABG TCO2 40 mEq/L (20-26)
[2019-04-03 03:57] LABS: ABG Base Excess 4 mEq/L (-2 to 3); ABG HCO3 35 mEq/L (21-27); ABG Oxygen Saturation 88 % (95-98); ABG PCO2 88 mmHg (35-45); ABG PH 7.21 pH Units (7.32-7.45); ABG PO2 70 mmHg (85-104); ABG TCO2 38 mEq/L (20-26); Blood Gas Modality BiLevel
[2019-04-03] MEDS: Levalbuterol Neb 1.25 MG/3 ML IH SCH ×6 (04:46→22:40)
[2019-04-03 05:06] LABS: BUN/Creatinine Ratio 32 (6-26); Blood Urea Nitrogen 23 mg/dL (8-23); Calcium 9.2 mg/dL (8.6-10.3); Carbon Dioxide 31 mEq/L (23-29); Chloride 98 mEq/L (98-107); Glucose 108 mg/dL (70-105); Osmolality,Calculated 298 (280-300); Potassium 4.3 mEq/L (3.5-5.1); Sodium 142 mEq/L (136-145); eGFR For African Americans > 60 (> 60); eGFR For Non-African Americans > 60 (> 60)
[2019-04-03 05:08] LABS: Basophils % 0.1 %; Hematocrit 41.9 % (35.3-44.9); Hemoglobin 13.4 g/dL (11.5-15.4); Immature Granulocytes % 0.8 % (0-4); Lymphocytes # 0.5 K/mcL (0.6-4.6); Lymphocytes % 2.5 %; Mean Corpuscular Hemoglobin 31.8 pg (28.0-33.3); Mean Corpuscular Volume 99.3 fL (83.0-100.0); Mean Platelet Volume 10.1 fL (9.4-12.4); Monocytes # 1.6 K/mcL (0.0-1.3); Monocytes % 7.8 %; Neutrophils # 18.6 K/mcL (1.6-8.9); Platelet Count 262 K/mcL (140-400); Red Blood Count 4.22 M/mcL (3.82-4.97); Red Cell Distribution Width 14.9 % (11.5-14.5); Segmented Neutrophils % 88.8 %; White Blood Count 20.9 K/mcL (4.3-11.1)
[2019-04-03] MEDS: *HR* Heparin 5,000 UNIT/ML VIAL SQ SCH ×2 (05:42→18:18)
[2019-04-03] MEDS ORDERED: Haloperidol Lactate 5 MG/ML VIAL IVP ONE ×3 (06:31→23:06)
[2019-04-03] MEDS: Tiotropium 18 MCG inhalation IH SCH (07:30)
[2019-04-03] MEDS: Budesonide/Formoterol 80/4.5 1 PUFF INH IH SCH ×2 (07:30→19:42)
[2019-04-03] MEDS ORDERED: *HR* LORazepam 2 MG/ML VIAL IVP ONE ×2 (08:10→21:33)
[2019-04-03] MEDS ORDERED: *HR* LORazepam 2 MG/ML VIAL ONE ×2 (08:13→21:37)
[2019-04-03] MEDS ORDERED: Aminoglycoside Consult 1 EACH MC ONE (08:43)
[2019-04-03] MEDS ORDERED: predniSONE 20 MG TABLET PO SCH (09:00)
[2019-04-03] MEDS: cefTRIAXone 1,000 MG in Water for inj. (sterile) 10 ML IVP SCH (12:25)
[2019-04-03] MEDS ORDERED: *HR* Metoprolol 5 MG/5 ML VIAL IVP PRN (14:40)
[2019-04-03] MEDS: Azithromycin 250 MG TABLET PO SCH (15:43)
[2019-04-03] MEDS: Ascorbic Acid 500 MG TABLET PO SCH (15:43)
[2019-04-03] MEDS: Multivit/Ca/Min/Fe/FA 1 TAB TABLET PO SCH (15:58)
[2019-04-03] MEDS ORDERED: MethylPREDNISolone 40 MG/ML VIAL IVP SCH (16:00)
[2019-04-03] MEDS: Aspirin 81 MG TAB.CHEW PO SCH (17:53)
[2019-04-03] MEDS: (Roflumilast [Daliresp] 500 MCG) PO SCH (17:53)
[2019-04-03] MEDS: Piperacillin/Tazobactam 3.375 GM in 0.9 % Sodium Chloride Mini Bag 100 ML IVPB SCH ×2 (18:18→23:58)
[2019-04-03 19:44] LABS: ABG Base Excess 9 mEq/L (-2 to 3); ABG HCO3 37 mEq/L (21-27); ABG Oxygen Saturation 99 % (95-98); ABG PCO2 66 mmHg (35-45); ABG PH 7.35 pH Units (7.32-7.45); ABG PO2 168 mmHg (85-104); ABG TCO2 39 mEq/L (20-26)
[2019-04-03] MEDS ORDERED: *HR* Promethazine 25 MG/ML VIAL IVP ONE (23:48)
[2019-04-04] MEDS ORDERED: Haloperidol Lactate 5 MG/ML VIAL IVP ONE (00:44)
[2019-04-04 01:53] LABS: ABG Base Excess 6 mEq/L (-2 to 3); ABG HCO3 34 mEq/L (21-27); ABG Oxygen Saturation 99 % (95-98); ABG PCO2 70 mmHg (35-45); ABG PO2 133 mmHg (85-104); ABG TCO2 37 mEq/L (20-26)
[2019-04-04] MEDS: Dexmedetomidine HCl 400 MCG/100 ML MLS IVC SCH ×2 (02:12→16:11)
[2019-04-04 02:14] LABS: Basophils % 0.1 %; Hematocrit 38.9 % (35.3-44.9); Hemoglobin 12.2 g/dL (11.5-15.4); Immature Granulocytes % 0.7 % (0-4); Lymphocytes # 0.7 K/mcL (0.6-4.6); Lymphocytes % 5.2 %; Mean Corpuscular HGB Conc 31.4 g/dL (31.6-35.5); Mean Corpuscular Hemoglobin 31.9 pg (28.0-33.3); Mean Corpuscular Volume 101.8 fL (83.0-100.0); Monocytes # 0.7 K/mcL (0.0-1.3); Neutrophils # 12.2 K/mcL (1.6-8.9); Platelet Count 220 K/mcL (140-400); Red Blood Count 3.82 M/mcL (3.82-4.97); Red Cell Distribution Width 14.7 % (11.5-14.5); White Blood Count 13.7 K/mcL (4.3-11.1)
[2019-04-04 02:33] LABS: BUN/Creatinine Ratio 40 (6-26); Blood Urea Nitrogen 32 mg/dL (8-23); Calcium 8.7 mg/dL (8.6-10.3); Carbon Dioxide 32 mEq/L (23-29); Chloride 102 mEq/L (98-107); Glucose 87 mg/dL (70-105); Osmolality,Calculated 300 (280-300); Potassium 4.5 mEq/L (3.5-5.1); Sodium 142 mEq/L (136-145); eGFR For African Americans > 60 (> 60); eGFR For Non-African Americans > 60 (> 60)
[2019-04-04] MEDS ORDERED: 0.9 % Sodium Chloride 1,000 ML ONE (02:46)
[2019-04-04] MEDS: Levalbuterol Neb 1.25 MG/3 ML IH SCH ×6 (04:14→23:41)
[2019-04-04 04:50] LABS: ABG Base Excess 8 mEq/L (-2 to 3); ABG HCO3 35 mEq/L (21-27); ABG Oxygen Saturation 100 % (95-98); ABG PCO2 58 mmHg (35-45); ABG PH 7.38 pH Units (7.32-7.45); ABG PO2 603 mmHg (85-104); ABG TCO2 36 mEq/L (20-26); Blood Gas Modality ASSIST CONTROL; Blood Gas VT 450 cc
[2019-04-04] MEDS: *HR* Heparin 5,000 UNIT/ML VIAL SQ SCH ×2 (06:07→18:01)
[2019-04-04] MEDS ORDERED: MethylPREDNISolone 40 MG/ML VIAL IVP SCH (07:01)
[2019-04-04] MEDS ORDERED: Ringers Solution, Lactated 500 ML IVC ONE (07:24)
[2019-04-04] MEDS: Ipratropium/Albuterol Neb 3 ML IH SCH ×6 (07:27→23:38)
[2019-04-04] MEDS: Budesonide/Formoterol 80/4.5 1 PUFF INH IH SCH ×2 (07:28→21:28)
[2019-04-04] MEDS ORDERED: *HR* LORazepam 2 MG/ML VIAL IVP PRN (07:55)
[2019-04-04] MEDS ORDERED: methylPREDNISolone 125 MG/2 ML VIAL ONE (07:57)
[2019-04-04] MEDS ORDERED: *HR* LORazepam 2 MG/ML VIAL ONE (08:01)
[2019-04-04] MEDS ORDERED: Racepinephrine Neb 0.5 ML VIAL IH ONE (08:21)
[2019-04-04] MEDS ORDERED: *HR* LORazepam 2 MG/ML VIAL IVP ONE (08:29)
[2019-04-04] MEDS ORDERED: MethylPREDNISolone 40 MG/ML VIAL IVP ONE (08:29)
[2019-04-04] MEDS ORDERED: Ringers Solution, Lactated 1,000 ML ONE (10:14)
[2019-04-04] MEDS ORDERED: *HR* Midazolam HCl 5 MG/5 ML VIAL IVP ONE (10:15)
[2019-04-04] MEDS ORDERED: *HR* Etomidate 20 MG/10 ML AMPUL IVP ONE (10:15)
[2019-04-04] MEDS ORDERED: Artificial Tears SOLN 15 ML BOTTLE BOTH EYES PRN (10:30)
[2019-04-04] MEDS: FentaNYL (PF) 1,000 MCG in 0.9 % Sodium Chloride 80 ML IVC SCH (10:30)
[2019-04-04] MEDS: Tiotropium 18 MCG inhalation IH SCH (12:06)
[2019-04-04] MEDS: Artificial Tears SOLN 15 ML BOTTLE BOTH EYES SCH ×3 (12:29→21:13)
[2019-04-04] MEDS: methylPREDNISolone 125 MG/2 ML VIAL IVP SCH ×3 (12:30→23:55)
[2019-04-04 14:03] LABS: ABG Base Excess 2 mEq/L (-2 to 3); ABG HCO3 29 mEq/L (21-27); ABG Oxygen Saturation 98 % (95-98); ABG PCO2 58 mmHg (35-45); ABG PH 7.31 pH Units (7.32-7.45); ABG PO2 112 mmHg (85-104); ABG TCO2 31 mEq/L (20-26); Blood Gas Modality ASSIST CONTROL; Blood Gas VT 420 cc
[2019-04-04] MEDS: (Roflumilast [Daliresp] 500 MCG) PO SCH (17:58)
[2019-04-04] MEDS: Chlorhexidine Rinse 15 ML MOUTHWASH MM SCH (21:12)
[2019-04-05] MEDS: Artificial Tears SOLN 15 ML BOTTLE BOTH EYES SCH ×7 (00:31→23:10)
[2019-04-05] MEDS: Ipratropium/Albuterol Neb 3 ML IH SCH ×6 (03:30→23:08)
[2019-04-05 04:59] LABS: Basophils % 0.2 %; Hemoglobin 11.9 g/dL (11.5-15.4); Immature Granulocytes % 0.7 % (0-4); Lymphocytes # 0.3 K/mcL (0.6-4.6); Lymphocytes % 4.7 %; Mean Corpuscular HGB Conc 32.2 g/dL (31.6-35.5); Mean Corpuscular Hemoglobin 31.4 pg (28.0-33.3); Mean Corpuscular Volume 97.6 fL (83.0-100.0); Mean Platelet Volume 10.1 fL (9.4-12.4); Monocytes # 0.1 K/mcL (0.0-1.3); Monocytes % 1.7 %; Neutrophils # 5.4 K/mcL (1.6-8.9); Platelet Count 189 K/mcL (140-400); Red Blood Count 3.79 M/mcL (3.82-4.97); Red Cell Distribution Width 14.6 % (11.5-14.5); Segmented Neutrophils % 92.7 %
[2019-04-05 05:02] LABS: White Blood Count 5.8 K/mcL (4.3-11.1)
[2019-04-05 05:10] LABS: ABG Base Excess 6 mEq/L (-2 to 3); ABG HCO3 33 mEq/L (21-27); ABG Oxygen Saturation 94 % (95-98); ABG PCO2 60 mmHg (35-45); ABG PH 7.35 pH Units (7.32-7.45); ABG PO2 76 mmHg (85-104); ABG TCO2 35 mEq/L (20-26); Blood Gas Modality VC; Blood Gas VT 420 cc
[2019-04-05 05:20] LABS: BUN/Creatinine Ratio 42 (6-26); Blood Urea Nitrogen 27 mg/dL (8-23); Carbon Dioxide 29 mEq/L (23-29); Chloride 105 mEq/L (98-107); Glucose 168 mg/dL (70-105); Potassium 4.1 mEq/L (3.5-5.1); Sodium 142 mEq/L (136-145); eGFR For African Americans > 60 (> 60); eGFR For Non-African Americans > 60 (> 60)
[2019-04-05 05:21] LABS: Calcium 8.3 mg/dL (8.6-10.3); Osmolality,Calculated 303 (280-300)
[2019-04-05] MEDS: Levalbuterol Neb 1.25 MG/3 ML IH SCH ×3 (05:46→11:00)
[2019-04-05] MEDS: methylPREDNISolone 125 MG/2 ML VIAL IVP SCH ×4 (05:59→23:10)
[2019-04-05] MEDS: *HR* Heparin 5,000 UNIT/ML VIAL SQ SCH ×2 (05:59→17:10)
[2019-04-05] MEDS: Dexmedetomidine HCl 400 MCG/100 ML MLS IVC SCH ×2 (06:22→21:30)
[2019-04-05] MEDS: Budesonide/Formoterol 80/4.5 1 PUFF INH IH SCH ×2 (07:13→19:27)
[2019-04-05] MEDS: FentaNYL (PF) 1,000 MCG in 0.9 % Sodium Chloride 80 ML IVC SCH (08:09)
[2019-04-05] MEDS: Pantoprazole 40 MG VIAL IVP SCH (08:15)
[2019-04-05] MEDS: Chlorhexidine Rinse 15 ML MOUTHWASH MM SCH ×2 (08:15→20:00)
[2019-04-05] MEDS ORDERED: Levothyroxine Sodium 100 MCG VIAL IVP ONE (10:01)
[2019-04-05] MEDS: (Roflumilast [Daliresp] 500 MCG) PO SCH (15:12)
[2019-04-05] MEDS: (Roflumilast [Daliresp] 500 MCG) GTUBE SCH (15:13)
[2019-04-06] MEDS: Ipratropium/Albuterol Neb 3 ML IH SCH ×6 (03:26→23:23)
[2019-04-06] MEDS: Artificial Tears SOLN 15 ML BOTTLE BOTH EYES SCH ×4 (03:36→09:05)
[2019-04-06 04:13] LABS: ABG Base Excess 9 mEq/L (-2 to 3); ABG HCO3 35 mEq/L (21-27); ABG Oxygen Saturation 92 % (95-98); ABG PCO2 52 mmHg (35-45); ABG PH 7.44 pH Units (7.32-7.45); ABG PO2 63 mmHg (85-104); ABG TCO2 37 mEq/L (20-26); Blood Gas Modality ASSIST CONTROL; Blood Gas VT 500 cc
[2019-04-06 05:00] LABS: VBG Ionized Calcium 1.06 mmol/L (1.15-1.35)
[2019-04-06 05:04] LABS: Basophils % 0.1 %; Hematocrit 37.8 % (35.3-44.9); Hemoglobin 12.4 g/dL (11.5-15.4); Immature Granulocytes % 0.7 % (0-4); Lymphocytes # 0.3 K/mcL (0.6-4.6); Lymphocytes % 2.6 %; Mean Corpuscular HGB Conc 32.8 g/dL (31.6-35.5); Mean Corpuscular Volume 97.4 fL (83.0-100.0); Monocytes # 0.2 K/mcL (0.0-1.3); Monocytes % 1.7 %; Neutrophils # 11.5 K/mcL (1.6-8.9); Platelet Count 211 K/mcL (140-400); Red Blood Count 3.88 M/mcL (3.82-4.97); Red Cell Distribution Width 14.7 % (11.5-14.5); Segmented Neutrophils % 94.9 %
[2019-04-06] MEDS: methylPREDNISolone 125 MG/2 ML VIAL IVP SCH ×3 (05:06→19:58)
[2019-04-06] MEDS: *HR* Heparin 5,000 UNIT/ML VIAL SQ SCH ×2 (05:06→17:01)
[2019-04-06 05:07] LABS: White Blood Count 12.1 K/mcL (4.3-11.1)
[2019-04-06 05:18] LABS: Magnesium 2.5 mg/dL (1.6-2.6); Phosphorous 2.2 mg/dL (2.7-4.5)
[2019-04-06 05:19] LABS: BUN/Creatinine Ratio 51 (6-26); Blood Urea Nitrogen 33 mg/dL (8-23); Calcium 8.4 mg/dL (8.6-10.3); Carbon Dioxide 28 mEq/L (23-29); Chloride 106 mEq/L (98-107); Glucose 191 mg/dL (70-105); Osmolality,Calculated 306 (280-300); Potassium 4.8 mEq/L (3.5-5.1); Sodium 142 mEq/L (136-145); eGFR For African Americans > 60 (> 60); eGFR For Non-African Americans > 60 (> 60)
[2019-04-06] MEDS ORDERED: Levothyroxine Sodium 100 MCG VIAL IVP SCH (06:30)
[2019-04-06] MEDS: Budesonide/Formoterol 80/4.5 1 PUFF INH IH SCH ×2 (07:18→20:15)
[2019-04-06] MEDS: FentaNYL (PF) 1,000 MCG in 0.9 % Sodium Chloride 80 ML IVC SCH (07:45)
[2019-04-06] MEDS: Chlorhexidine Rinse 15 ML MOUTHWASH MM SCH (08:02)
[2019-04-06] MEDS: Pantoprazole 40 MG VIAL IVP SCH (08:02)
[2019-04-06] MEDS: Calcium Gluconate 1gm/50mL 1 GM/50 ML BAG IVPB SCH ×2 (08:23→09:04)
[2019-04-06] MEDS: (Roflumilast [Daliresp] 500 MCG) GTUBE SCH (09:21)
[2019-04-06] MEDS: Dexmedetomidine HCl 400 MCG/100 ML MLS IVC SCH ×2 (09:33→21:09)
[2019-04-06] MEDS ORDERED: Chloraseptic Spray 177 ML BOTTLE MM PRN (12:53)
[2019-04-06] MEDS ORDERED: Albuterol 2.5 MG/3 ML NEBULIZER IH PRN (15:30)
[2019-04-06] MEDS: Aspirin 81 MG TAB.CHEW PO SCH (17:01)
[2019-04-06] MEDS: Sennosides/Docusate Sodium TABLET PO SCH (19:58)
[2019-04-07] MEDS: Ipratropium/Albuterol Neb 3 ML IH SCH ×6 (03:12→23:30)
[2019-04-07 04:39] LABS: Basophils % 0.2 %; Hematocrit 38.4 % (35.3-44.9); Hemoglobin 12.5 g/dL (11.5-15.4); Immature Granulocytes % 1.7 % (0-4); Lymphocytes # 0.6 K/mcL (0.6-4.6); Lymphocytes % 3.9 %; Mean Corpuscular HGB Conc 32.6 g/dL (31.6-35.5); Mean Corpuscular Hemoglobin 30.9 pg (28.0-33.3); Mean Corpuscular Volume 94.8 fL (83.0-100.0); Mean Platelet Volume 9.5 fL (9.4-12.4); Monocytes # 0.5 K/mcL (0.0-1.3); Monocytes % 3.4 %; Neutrophils # 12.7 K/mcL (1.6-8.9); Platelet Count 216 K/mcL (140-400); Red Blood Count 4.05 M/mcL (3.82-4.97); Red Cell Distribution Width 14.7 % (11.5-14.5); Segmented Neutrophils % 90.8 %
[2019-04-07 04:59] LABS: BUN/Creatinine Ratio 57 (6-26); Blood Urea Nitrogen 31 mg/dL (8-23); Calcium 8.6 mg/dL (8.6-10.3); Carbon Dioxide 31 mEq/L (23-29); Chloride 104 mEq/L (98-107); Glucose 123 mg/dL (70-105); Magnesium 2.1 mg/dL (1.6-2.6); Osmolality,Calculated 300 (280-300); Phosphorous 2.3 mg/dL (2.7-4.5); Potassium 4.5 mEq/L (3.5-5.1); Sodium 141 mEq/L (136-145); eGFR For African Americans > 60 (> 60); eGFR For Non-African Americans > 60 (> 60)
[2019-04-07 05:01] LABS: VBG Ionized Calcium 1.11 mmol/L (1.15-1.35)
[2019-04-07] MEDS: *HR* Heparin 5,000 UNIT/ML VIAL SQ SCH ×2 (05:51→18:01)
[2019-04-07] MEDS ORDERED: *HR* LORazepam 0.5 MG TABLET PO PRN ×2 (08:12→09:47)
[2019-04-07] MEDS: Budesonide/Formoterol 80/4.5 1 PUFF INH IH SCH ×3 (08:16→19:38)
[2019-04-07] MEDS: Sennosides/Docusate Sodium TABLET PO SCH ×2 (09:06→22:25)
[2019-04-07] MEDS: Pantoprazole 40 MG VIAL IVP SCH (09:06)
[2019-04-07] MEDS: methylPREDNISolone 125 MG/2 ML VIAL IVP SCH (09:06)
[2019-04-07] MEDS ORDERED: Albuterol 2.5 MG/3 ML NEBULIZER IH PRN (09:47)
[2019-04-07] MEDS ORDERED: *HR* Metoprolol 5 MG/5 ML VIAL IVP PRN (09:47)
[2019-04-07] MEDS ORDERED: Chloraseptic Spray 177 ML BOTTLE MM PRN (09:47)
[2019-04-07] MEDS ORDERED: Artificial Tears SOLN 15 ML BOTTLE BOTH EYES PRN (09:47)
[2019-04-07] MEDS ORDERED: Naloxone 0.4 MG/ML INJ IVP PRN (09:47)
[2019-04-07] MEDS ORDERED: ROFLUMILAST 500 MCG GTUBE SCH (18:00)
[2019-04-07] MEDS ORDERED: MethylPREDNISolone 40 MG/ML VIAL IVP SCH (18:00)
[2019-04-07] MEDS: Aspirin 81 MG TAB.CHEW PO SCH (18:01)
[2019-04-07] MEDS: MethylPREDNISolone 40 MG/ML VIAL IVP SCH (18:01)
[2019-04-08] MEDS: Ipratropium/Albuterol Neb 3 ML IH SCH ×5 (03:15→20:12)
[2019-04-08 04:52] LABS: Basophils % 0.2 %; Hematocrit 39.6 % (35.3-44.9); Hemoglobin 12.8 g/dL (11.5-15.4); Immature Granulocytes % 1.9 % (0-4); Lymphocytes # 1.1 K/mcL (0.6-4.6); Lymphocytes % 7.9 %; Mean Corpuscular HGB Conc 32.3 g/dL (31.6-35.5); Mean Corpuscular Hemoglobin 31.4 pg (28.0-33.3); Mean Corpuscular Volume 97.3 fL (83.0-100.0); Mean Platelet Volume 9.8 fL (9.4-12.4); Monocytes # 0.7 K/mcL (0.0-1.3); Monocytes % 4.9 %; Neutrophils # 11.8 K/mcL (1.6-8.9); Platelet Count 232 K/mcL (140-400); Red Blood Count 4.07 M/mcL (3.82-4.97); Red Cell Distribution Width 14.7 % (11.5-14.5); Segmented Neutrophils % 85.1 %; White Blood Count 13.9 K/mcL (4.3-11.1)
[2019-04-08 05:10] LABS: BUN/Creatinine Ratio 36 (6-26); Blood Urea Nitrogen 24 mg/dL (8-23); Calcium 8.9 mg/dL (8.6-10.3); Carbon Dioxide 35 mEq/L (23-29); Chloride 101 mEq/L (98-107); Glucose 105 mg/dL (70-105); Magnesium 1.9 mg/dL (1.6-2.6); Osmolality,Calculated 294 (280-300); Potassium 4.2 mEq/L (3.5-5.1); Sodium 140 mEq/L (136-145); eGFR For African Americans > 60 (> 60); eGFR For Non-African Americans > 60 (> 60)
[2019-04-08] MEDS: MethylPREDNISolone 40 MG/ML VIAL IVP SCH (05:26)
[2019-04-08] MEDS: *HR* Heparin 5,000 UNIT/ML VIAL SQ SCH ×2 (05:26→16:54)
[2019-04-08] MEDS: Tiotropium 18 MCG inhalation IH SCH (07:17)
[2019-04-08] MEDS: Budesonide/Formoterol 80/4.5 1 PUFF INH IH SCH ×2 (07:18→20:12)
[2019-04-08] MEDS: Sennosides/Docusate Sodium TABLET PO SCH ×2 (09:50→20:10)
[2019-04-08] MEDS: predniSONE 20 MG TABLET PO SCH (11:21)
[2019-04-08] MEDS: Aspirin 81 MG TAB.CHEW PO SCH (16:54)
[2019-04-09] MEDS: Ipratropium/Albuterol Neb 3 ML IH SCH ×4 (00:04→12:04)
[2019-04-09] MEDS: *HR* Heparin 5,000 UNIT/ML VIAL SQ SCH (05:44)
[2019-04-09 06:19] VITALS: BP 164/87
[2019-04-09 06:34] LABS: BUN/Creatinine Ratio 28 (6-26); Blood Urea Nitrogen 22 mg/dL (8-23); Calcium 9.2 mg/dL (8.6-10.3); Carbon Dioxide 35 mEq/L (23-29); Chloride 98 mEq/L (98-107); Glucose 100 mg/dL (70-105); Osmolality,Calculated 297 (280-300); Potassium 4.4 mEq/L (3.5-5.1); Sodium 142 mEq/L (136-145); eGFR For African Americans > 60 (> 60); eGFR For Non-African Americans > 60 (> 60)
[2019-04-09 06:42] LABS: Hematocrit 42.3 % (35.3-44.9); Hemoglobin 13.9 g/dL (11.5-15.4); Mean Corpuscular HGB Conc 32.9 g/dL (31.6-35.5); Mean Corpuscular Hemoglobin 31.2 pg (28.0-33.3); Mean Corpuscular Volume 94.8 fL (83.0-100.0); Platelet Count 258 K/mcL (140-400); Red Blood Count 4.46 M/mcL (3.82-4.97); Red Cell Distribution Width 14.5 % (11.5-14.5); White Blood Count 16.3 K/mcL (4.3-11.1)
[2019-04-09] MEDS: Budesonide/Formoterol 80/4.5 1 PUFF INH IH SCH (07:50)
[2019-04-09] MEDS: Tiotropium 18 MCG inhalation IH SCH (07:50)
[2019-04-09] MEDS: predniSONE 20 MG TABLET PO SCH (08:42)
[2019-04-09] MEDS: Sennosides/Docusate Sodium TABLET PO SCH (08:42)
== END 2019-04-09 14:15 | disposition home health service (06) | DRG 208 ==
LOC: 3BNU 19:44 → EMEROOARM 19:44 → 3BNU 23:15 → SUATTDRO 04-01 13:13 → 2NNU 04-03 04:29 → ICNU 04-04 03:35 → 3ANU 04-07 17:33
PROVIDERS: ADMIT Internal Medicine; ATTEND Internal Medicine

== ENCOUNTER 2019-04-27 11:15 | Inpatient (IN) ==
[2019-04-27] MEDS ORDERED: Azithromycin 500 MG in 0.9 % Sodium Chloride 250 ML IVPB ONE (11:31)
[2019-04-27] MEDS ORDERED: cefTRIAXone 1,000 MG in Water for inj. (sterile) 10 ML IVP ONE (11:31)
[2019-04-27] MEDS ORDERED: 0.9 % Sodium Chloride 1,000 ML IVC ONE (11:31)
[2019-04-27] MEDS ORDERED: methylPREDNISolone 125 MG/2 ML VIAL IVP ONE (11:33)
[2019-04-27] MEDS ORDERED: Ipratropium/Albuterol Neb 3 ML IH ONE (11:33)
[2019-04-27] MEDS ORDERED: Isovue-370 500 ML BOTTLE IVP ONE (11:57)
[2019-04-27 12:17] LABS: Basophils % 0.3 %; Eosinophils # 0.1 K/mcL (0.0-0.6); Eosinophils % 1.8 %; Hematocrit 37.7 % (35.3-44.9); Hemoglobin 11.9 g/dL (11.5-15.4); Immature Granulocytes % 0.7 % (0-4); Lymphocytes # 0.3 K/mcL (0.6-4.6); Lymphocytes % 4.6 %; Mean Corpuscular HGB Conc 31.6 g/dL (31.6-35.5); Mean Corpuscular Hemoglobin 31.2 pg (28.0-33.3); Mean Platelet Volume 9.8 fL (9.4-12.4); Monocytes # 0.4 K/mcL (0.0-1.3); Monocytes % 4.7 %; Neutrophils # 6.5 K/mcL (1.6-8.9); Platelet Count 190 K/mcL (140-400); Red Blood Count 3.81 M/mcL (3.82-4.97); Red Cell Distribution Width 14.6 % (11.5-14.5); Segmented Neutrophils % 87.9 %; White Blood Count 7.4 K/mcL (4.3-11.1)
[2019-04-27 12:25] LABS: Activated Partial Thrombo Time 28.6 Seconds (26.0-36.0); INR 1.1; Prothrombin Time 12.6 Seconds (9.4-12.1)
[2019-04-27 12:34] LABS: Alanine Aminotransferase 29 Units/L (7-52); Albumin 3.4 g/dL (3.5-5.7); Albumin/Globulin Ratio 1.1 (1.1-2.2); Alkaline Phosphatase 78 Units/L (34-104); Aspartate Amino Transferase 18 Units/L (13-39); BUN/Creatinine Ratio 23 (6-26); Bilirubin,Direct 0.1 mg/dL (0.0-0.2); Bilirubin,Indirect 0.2 mg/dL (0.0-1.0); Bilirubin,Total 0.3 mg/dL (0.3-1.0); Blood Urea Nitrogen 17 mg/dL (8-23); Carbon Dioxide 31 mEq/L (23-29); Chloride 99 mEq/L (98-107); Globulin 3.1 g/dL (2.4-3.5); Glucose 109 mg/dL (70-105); Osmolality,Calculated 294 (280-300); Phosphorous 2.5 mg/dL (2.7-4.5); Potassium 3.9 mEq/L (3.5-5.1); Sodium 141 mEq/L (136-145); Total Protein 6.5 g/dL (6.4-8.9); Troponin I < 0.03 ng/mL (< 0.04); eGFR For African Americans > 60 (> 60); eGFR For Non-African Americans > 60 (> 60)
[2019-04-27] MEDS ORDERED: Naloxone 0.4 MG/ML INJ IVP PRN (15:00)
[2019-04-27] MEDS ORDERED: Ondansetron 4 MG/2 ML VIAL IVP PRN (15:00)
[2019-04-27 15:40] LABS: Bilirubin,Urine Negative (Negative); Blood,Urine Negative (Negative); Clarity,Urine Clear (Clear); Color,Urine Yellow (Yellow); Glucose,Urine (UA) Normal (Normal); Ketones,Urine Negative (Negative); Leukocyte Esterase,Urine Negative (Negative); Nitrite,Urine Negative (Negative); PH,Urine 5.5 pH Units (5.0-8.0); Protein,Urine Trace mg/dL (Neg-Trace); Specific Gravity,Urine > 1.030 (1.010-1.025); Urobilinogen,Urine Normal (Normal)
[2019-04-27] MEDS: Levalbuterol Neb 0.63 MG/3 ML IH SCH ×3 (15:52→23:25)
[2019-04-27] MEDS ORDERED: Levalbuterol Neb 0.63 MG/3 ML IH SCH (16:00)
[2019-04-27] MEDS ORDERED: MethylPREDNISolone 40 MG/ML VIAL ONE (21:44)
[2019-04-28] MEDS: Levalbuterol Neb 0.63 MG/3 ML IH SCH ×3 (03:55→11:05)
[2019-04-28 04:30] LABS: Basophils % 0.2 %; Hematocrit 35.5 % (35.3-44.9); Hemoglobin 11.3 g/dL (11.5-15.4); Immature Granulocytes % 0.9 % (0-4); Lymphocytes # 0.5 K/mcL (0.6-4.6); Lymphocytes % 8.3 %; Mean Corpuscular HGB Conc 31.8 g/dL (31.6-35.5); Mean Corpuscular Hemoglobin 31.1 pg (28.0-33.3); Mean Corpuscular Volume 97.8 fL (83.0-100.0); Mean Platelet Volume 9.7 fL (9.4-12.4); Monocytes # 0.1 K/mcL (0.0-1.3); Monocytes % 2.6 %; Neutrophils # 4.8 K/mcL (1.6-8.9); Platelet Count 227 K/mcL (140-400); Red Blood Count 3.63 M/mcL (3.82-4.97); Red Cell Distribution Width 14.4 % (11.5-14.5); White Blood Count 5.4 K/mcL (4.3-11.1)
[2019-04-28 04:51] LABS: BUN/Creatinine Ratio 24 (6-26); Blood Urea Nitrogen 20 mg/dL (8-23); Calcium 8.5 mg/dL (8.6-10.3); Carbon Dioxide 31 mEq/L (23-29); Chloride 100 mEq/L (98-107); Glucose 127 mg/dL (70-105); Osmolality,Calculated 298 (280-300); Potassium 4.3 mEq/L (3.5-5.1); Sodium 142 mEq/L (136-145); eGFR For African Americans > 60 (> 60); eGFR For Non-African Americans > 60 (> 60)
[2019-04-28 04:52] LABS: Magnesium 2.1 mg/dL (1.6-2.6); Phosphorous 3.2 mg/dL (2.7-4.5)
[2019-04-28 05:03] LABS: Thyroid Stimulating Hormone 11.86 mcIU/mL (0.340-5.600)
[2019-04-28] MEDS ORDERED: *HR* Enoxaparin 40 MG/0.4 ML SYRINGE SQ SCH (06:00)
[2019-04-28 06:53] VITALS: BP 100/59
[2019-04-28] MEDS ORDERED: (Tiotropium Br/Olodaterol Hcl [Stiolto Respimat Inhal IH SCH (09:00)
[2019-04-28] MEDS ORDERED: MethylPREDNISolone 40 MG/ML VIAL IVP SCH (09:00)
[2019-04-28] MEDS ORDERED: Azithromycin 500 MG in 0.9 % Sodium Chloride 250 ML IVPB SCH (09:00)
[2019-04-28] MEDS ORDERED: (Fluticasone Furoate [Arnuity Ellipta] 1 PUFF) IH SCH (09:00)
[2019-04-28] MEDS ORDERED: Ascorbic Acid 500 MG TABLET PO SCH (09:00)
[2019-04-28] MEDS ORDERED: cefTRIAXone 1,000 MG in 0.9 % Sodium Chloride Mini Bag 100 ML IVP SCH (09:00)
[2019-04-28] MEDS ORDERED: Aspirin Enteric Coated 81 MG Tablet PO SCH (21:00)
== END 2019-04-28 13:48 | disposition home health service (06) | DRG 193 ==
LOC: 3ANU 11:15 → EMEROOARM 11:15 → 3ANU 15:42 → SUATTDRO 15:59
PROVIDERS: ADMIT Internal Medicine; ATTEND Family Medicine